=== PATIENT | female | born 1960 | race Caucasian/White ===

== ENCOUNTER 2021-02-02 10:57 | Outpatient (REF) | payer BC, SELFPAY ==
[2021-02-02 14:22] LABS: MANUAL DIFF FLAG NO
[2021-02-02 14:27] LABS: Basophils Percent Auto 0.3 % (0-2); Eosinophils Percent Auto 0.5 % (0-4); Hematocrit 41.5 % (37-47); Hemoglobin 13.6 g/dl (12.0-16.0); Imm Gran Abs Auto 0.01 X10*3/uL (0.00-0.03); Imm Gran Pct Auto 0.2 % (0.0-0.4); Lymphocytes Absolute Auto 1.6 X10*3/uL (1.2-4.9); Lymphocytes Percent Auto 27.3 % (20-40); Mean Corpuscular HGB Conc 32.8 g/dl (31.0-35.0); Mean Corpuscular Volume 88.5 fL (80-98); Mean Platelet Volume 10.8 fL (9.4-12.3); Monocytes Absolute Auto 0.3 X10*3/uL (0.1-1.2); Monocytes Percent Auto 4.6 % (2-11); Neutrophils Absolute Auto 3.9 X10*3/uL (2.0-8.3); Neutrophils Percent Auto 67.1 % (45-73); Platelet Count 327 X10*3/uL (160-400); Red Blood Count 4.69 X10*6/uL (4.20-5.50); White Blood Count 5.8 X10*3/uL (4.8-10.8)
[2021-02-02 14:59] LABS: Anion Gap 14 (12-20); Blood Urea Nitrogen 12 mg/dL (9-16); Carbon Dioxide 25 mmol/L (22-29); Chloride 108 mmol/L (96-108); Estimated Glomerular Filt Rate > 60; Glucose Fasting 83 mg/dL (60-99); Sodium 142 mmol/L (135-145)
[2021-02-02 15:00] LABS: Alanine Aminotransferase 34 U/L (0-31); Albumin Level 4.3 g/dL (3.5-5.0); Alkaline Phosphatase 84 U/L (39-117); Aspartate Amino Transferase 33 U/L (5-31); Bilirubin Total 0.6 mg/dL (0.0-1.0); Calcium 9.8 mg/dL (8.4-10.2); Cholesterol 217 mg/dL; HDL Cholesterol 75 mg/dL; LDL Cholesterol Calculated 131 mg/dl; Total Protein 6.7 g/dL (6.5-8.0); Triglycerides 56 mg/dL
[2021-02-02 15:07] LABS: Thyroid Stimulating Hormone 1.37 uIU/mL (0.32-4.0); Vitamin D 25-OH Total 31.5 ng/mL (>30)
== END 2021-02-02 10:58 | disposition home or self-care (01) ==
LOC: HO.HMGCLDS 10:57
PROVIDERS: PCP Internal Medicine; Visit Provider Internal Medicine
DX: Z00.00 Encounter for general adult medical examination without abnormal findings (principal); E55.9 Vitamin D deficiency, unspecified
CPT/HCPCS: 36415; 80053; 80061; 82306; 84443; 85025

== ENCOUNTER 2022-09-19 08:43 | Outpatient (REF) | payer OTHER, SELFPAY ==
[2022-09-19 11:15] LABS: Appearance Urine Clear; Color Urine Yellow; Glucose Urine UA Negative (Negative); Leukocyte Esterase Urine Trace (Negative); Nitrite Urine Negative (Negative); UMIC TRIGGER UA YES; Urine Blood Negative (Negative); Urine Ketones Negative (Negative); Urine Protein Negative (Neg-Trace)
[2022-09-19 11:22] LABS: Bacteria Urine None Seen (None Seen); Hyaline Casts Urine 0-2 /LPF (0-2); RBC Urine 0-2 /HPF (0-2); Squamous Epithelial Cell Urine 0-2 /HPF (0-2); WBC Urine 0-5 /HPF (0-5)
[2022-09-19 11:24] LABS: MANUAL DIFF FLAG NO
[2022-09-19 11:43] LABS: Basophils Percent Auto 0.8 % (0-2); Eosinophils Absolute Auto 0.2 X10*3/uL (0.0-0.4); Eosinophils Percent Auto 3.5 % (0-4); Hematocrit 42.5 % (37.0-47.0); Hemoglobin 13.9 g/dl (12.0-16.0); Imm Gran Abs Auto 0.01 X10*3/uL (0.00-0.03); Imm Gran Pct Auto 0.2 % (0.0-0.4); Lymphocytes Absolute Auto 2.6 X10*3/uL (1.2-4.9); Lymphocytes Percent Auto 50.6 % (20-40); Mean Corpuscular HGB Conc 32.7 g/dl (31.0-35.0); Mean Corpuscular Volume 88.5 fL (80.0-98.0); Mean Platelet Volume 10.8 fL (9.4-12.3); Monocytes Absolute Auto 0.5 X10*3/uL (0.1-1.2); Monocytes Percent Auto 8.8 % (2-11); Neutrophils Absolute Auto 1.9 x10*3/uL (2.0-8.3); Neutrophils Percent Auto 36.1 % (45-73); Platelet Count 283 X10*3/uL (160-400); Red Cell Distribution Width 13.8 % (11.0-16.0); White Blood Count 5.2 X10*3/uL (4.8-10.8)
[2022-09-19 12:00] LABS: Alanine Aminotransferase 41 U/L (0-31); Alkaline Phosphatase 122 U/L (39-117); Anion Gap 11 (12-20); Aspartate Amino Transferase 41 U/L (5-31); Bilirubin Total 0.5 mg/dL (0.0-1.0); Blood Urea Nitrogen 18 mg/dL (9-16); Calcium 9.3 mg/dL (8.4-10.2); Carbon Dioxide 25 mmol/L (22-29); Chloride 110 mmol/L (96-108); Cholesterol 218 mg/dL; Estimated Glomerular Filt Rate > 60; Glucose Fasting 88 mg/dL (60-99); HDL Cholesterol 68 mg/dL; LDL Cholesterol Calculated 138 mg/dl; Potassium 5.1 mmol/L (3.3-5.1); Sodium 141 mmol/L (135-145); Total Protein 6.4 g/dL (6.5-8.0); Triglycerides 61 mg/dL
[2022-09-19 12:36] LABS: Thyroid Stimulating Hormone 1.91 uIU/mL (0.32-4.0); Vitamin D 25-OH Total 26.2 ng/mL (>30)
== END 2022-09-19 08:44 | disposition home or self-care (01) ==
LOC: HO.HMGCLDS 08:43
PROVIDERS: PCP Internal Medicine; Visit Provider Internal Medicine
DX: Z00.00 Encounter for general adult medical examination without abnormal findings (principal); E55.9 Vitamin D deficiency, unspecified; R09.89 Other specified symptoms and signs involving the circulatory and respiratory systems; E78.00 Pure hypercholesterolemia, unspecified
CPT/HCPCS: 36415; 80053; 80061; 81001; 82306; 84443; 85025

== ENCOUNTER 2022-10-14 08:24 | Day surgery (SDC) | payer OTHER, SELFPAY ==
--- NOTE | 2022-10-11 10:41 | P.CONAN_ITS ---
Documented by User: Susanna Katz NP 10/11/22 10:44 HPI - Anesthesia Eval Consult details Narrative: 62yo F for Colonoscopy [facility] Past Medical History Medical History No pertinent past medical history Surgical History Surgical History H/O breast biopsy Hx of colonoscopy Social History Social History Patient Tobacco Use Status: Former Tobacco user Advance Directives: No Advance Directives Information Provided: Yes Meds Allergies Allergy/AdvReac Type Severity Reaction Status Date / Time codeine [CODEINE] Allergy Unknown can't sleep Verified 10/14/22 13:18 erythromycin base Allergy Unknown Rash Verified 10/14/22 13:18 [ERYTHROMYCIN BASE] penicillin V Allergy Unknown Unknown Verified 10/14/22 13:18 Penicillins [PENICILLINS] Allergy Unknown Rash Verified 10/14/22 13:18 Exam Exam Date and Time: October 11, 2022 1041 Assessment and Plan Assessment Anesthesia Assessment: Chart Reviewed Documented by User: Va Sutherland MD 10/14/22 13:56 HPI - Anesthesia Eval Consult details Narrative: 62yo F for Colonoscopy fell and hit head with loss of conciousness and bruised left eye sent to ER headCT cleared [facility] Past Medical History Medical History No pertinent past medical history Family History Family history of problems with anesthesia: No Surgical History Surgical History H/O breast biopsy Hx of colonoscopy History of Problems with Anesthesia: No Social History Social History Patient Tobacco Use Status: Former Tobacco user Advance Directives: No Advance Directives Information Provided: Yes Meds Allergies Allergy/AdvReac Type Severity Reaction Status Date / Time codeine [CODEINE] Allergy Unknown can't sleep Verified 10/14/22 13:18 erythromycin base Allergy Unknown Rash Verified 10/14/22 13:18 [ERYTHROMYCIN BASE] penicillin V Allergy Unknown Unknown Verified 10/14/22 13:18 Penicillins [PENICILLINS] Allergy Unknown Rash Verified 10/14/22 13:18 Exam Airway Mallampati Class: I TM Dist: >3cm Neck ROM: Full Loose/Missing/Broken Teeth: No Heart: rr Lungs: cta Other: black and blue left eye no other apparent injuries or co pain Assessment and Plan Final Anesthetic Review Family History of Problems with Anesthesia: No History of Problems with Anesthesia: No NPO: Yes ASA Class: II Final Preanesthetic Review: No Changes in Pt Med Stat, Meds/Allgs Chart Reviewed, Consent Obtained/Reviewed and Anes Risks/Benef Reviewed Patient Risk: Low Procedure Risk: Low Anesthetic Plan Anesthetic Plan: MAC: Disposition: Standard PACU
--- OUTSIDE RECORDS SUMMARY | 2022-10-14 08:26 | XMS_ITS ---
Author Name Demterio Lewis Address [address] [place] [address] Organization [facility] Address [address] [place] [address] Care Team Providers Care Patient Financial Services Coordinator Name Role Phone Demetrio Lewis Unavailable [phone] PROBLEMS Type Condition ICD9-CM Code [id number] Code Onset Dates Condition Status SNOMED Code Problem Preprocedural examination Z01.818 Active 504179342326465 Problem Colon cancer screening Z12.11 Active [id number] ALLERGIES Substance Reaction Event Type Date Status Codeine Phosphate Unknown Drug Allergy Jul, Act florentino Erythromycin Unknown Drug Allergy Jul, Active Penicillin Unknown Drug Allergy Jul, Active ENCOUNTERS Encounter Location Date Diagnosis [facility] [address] [place] [id number] September, [facility] [address] [place] [phone] Jul, Colon cancer screening Z12.11 and Preprocedural examination Z01.818 [facility] [address] [place] [id number] Jun, [facility] [address] [place] [phone] Apr, [facility] [address] [place] [phone] Apr, Colon cancer screening V76.51 IMMUNIZATIONS No Known Immunizations SOCIAL HISTORY Never Assessed REASON FOR REFERRAL FUNCTIONAL STATUS PLAN OF CARE Activity Details VITAL SIGNS Weight 115 lbs 2022-08-20 Weight 108.5 lbs 2012-05-12 Height 63.35 in 2022-08-20 Height 63.35 in 2012-05-12 BMI 20.14 kg/m2 2022-08-20 BMI 19.01 kg/m2 2012-05-12 Heart Rate 68 /min 2012-05-12 Temperature 97.1 degrees Fahrenheit Blood pressure systolic 000 mm Hg Blood pressure diastolic 00 mm Hg 2022-07 MEDICATIONS Unknown Medications PROCEDURES Procedure Date Ordered Result Body Site BP SCR NOT PRFRM REC REASON NOS August 20, 2022 TOBACCO NON-USER August 20, 2022 DOC MEDS VERIFIED W/PT OR RE August 20, 2022 COLORECTAL CA SCREEN DOC REV August 20, 2022 RESULTS No Results REASON FOR VISIT screening colon, Patient presents today for a SCREENNG COLON, Patient presents today for a SCREENNGCOLON, screening colon , Suprep, screening colonoscopy, screening colonoscopy Insurance Providers Health Insurance Type Health Plan Insurance Address Health Plan Insurance Phone Health Plan Insurance Name Health Plan Coverage Dates Member ID Patient Relationship to Subscriber Patient Address Patient Phone Patient Name Patient Date of Subscriber ID Subscriber Name Subscriber Date of Group No HMO BLUE BCBS PROFESSION [place] CLAIMS [address] [facility] [id number] HMO BLUE self TY WAGNER [id number] 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
[2022-10-14 09:15] VITALS: BMI 20.1
[2022-10-14 09:30] VITALS: BP 127/55; PULSE 86; RESP 16; TEMP 36.4; O2SAT 98
--- NOTE | 2022-10-14 10:02 | PC.NURSE ---
upon arrival patient stated after completing bowel prep I fell and hit my head on the toilet . patient confirms she loss consciousness and does not remember when she fell or how long she was down for. Dr. Sutherland and Dr. Lewis aware. patient transfered to ER, if CT scan clear patient to return to [facility] for colonoscopy as scheduled today. report given to CASE Lira and Dr. Lewis doc to doc given to ER provider. patient [facility] [place] [facility] [place] [facility].
--- NOTE | 2022-10-14 13:16 | PC.NURSE ---
pt cleared by [facility] will proceed with coloscopy per anesthesia and dr reis
[2022-10-14 14:22] VITALS: BP 107/50; PULSE 91; RESP 16; TEMP 36.1; O2SAT 99
--- NOTE | 2022-10-14 14:22 | PM.OP ---
Brief Operative Note Date of Service: 10/14/22 Pre-op diagnosis: Screening Post-op diagnosis: other (Cecal polyp) Procedure: Colonoscopy to the cecum with hot snare polypectomy x 1 Surgeon: Demetrio Lewis Anesthesia: MAC Was an Store Clerk Cashier used for this Procedure?: No Estimated blood loss (mL): 0 Pathology: other (A. Cecal polyp) Condition: stable Disposition: PACU
[2022-10-14 14:37] VITALS: BP 110/64; PULSE 78; RESP 16; TEMP 36.1; O2SAT 99
--- NOTE | 2022-10-15 00:14 | OP_ITS ---
DATE OF SERVICE: 10/14/2022 SURGEON: Demetrio Lewis MD INDICATIONS: The patient presents for evaluation of colorectal cancer screening. Full consent has been obtained from her for this, including risks of bleeding and perforation. PREOPERATIVE DIAGNOSIS: Colorectal cancer screening. POSTOPERATIVE DIAGNOSIS: PROCEDURE PERFORMED: Colonoscopy to cecum with hot snare polypectomy. ESTIMATED BLOOD LOSS: COMPLICATIONS: ANESTHESIA: Monitored anesthesia care. ASSISTANTS: SPECIMENS: POSTOPERATIVE DIAGNOSES: Colorectal cancer screening, colon polyp, sigmoid diverticulosis, internal hemorrhoids. DESCRIPTION OF PROCEDURE: The patient was placed in the left lateral decubitus position. The digital rectal exam revealed no abnormalities. The Olympus video pediatric colonoscope was entered into the rectum and advanced easily to the cecum. Once in the cecum, I did identify cecal pouch with appendiceal orifice, a normal-appearing ileocecal valve. There was transillumination of light deep in the right lower quadrant. The entire cecum was well visualized and appeared normal other than an approximately 8 mm polyp, which was removed by hot snare polypectomy and recovered by suction. The polypectomy site appeared clean, without any sign of residual polyp nor bleeding. The scope was then slowly withdrawn assessing all mucosal surfaces carefully. Preparation was excellent. I did not visualize any sign of other polyps, colitis, nor angiodysplasia. There was a mild amount of sigmoid diverticulosis. In the rectum, scope was retroflexed visualizing internal hemorrhoids, but no other pathology. The rectal mucosa appeared normal. The scope was straightened and withdrawn from the patient. She tolerated the procedure well and was returned to recovery area in stable condition. IMPRESSION: 1. Cecal polyp, status post hot snare polypectomy. 2. Diverticulosis. 3. Internal hemorrhoids. PLAN: The results of the pathology will be checked. If this is a tubular adenoma, I would recommend a followup coloscopy in 5 years. If it is only a hyperplastic and/or inflammatory polyp, I would recommend a followup coloscopy in 10 years instead. She was advised not to use any aspirin and NSAIDs for 1 week. Of note, she did have a fall at home last night, which caused a black eye. Prior to the procedure, she was sent to the ER for evaluation and underwent a negative CT scan of the head and cervical spine. She was sent back for the procedure and has been comfortable. She can use some Tylenol and/or ice for any discomfort in that area, but was advised to follow up with her primary care physician regarding any ongoing issues with it. This has all been discussed with her in detail. MD BALJINDER Lepe/TRA / [id number] MTDD
== END 2022-10-14 15:26 | disposition home or self-care (01) ==
PROVIDERS: PCP Internal Medicine; Visit Provider Internal Medicine
PROC: 0DJD8ZZ Inspection of Lower Intestinal Tract, Via Natural or Artificial Opening Endoscopic (ICD-10-PCS; CPT 45378; principal; 2022-10-14 10:40)
DX: Z12.11 Encounter for screening for malignant neoplasm of colon (principal); D12.0 Benign neoplasm of cecum; K57.30 Diverticulosis of large intestine without perforation or abscess without bleeding; K64.8 Other hemorrhoids; Z88.0 Allergy status to penicillin; Z88.1 Allergy status to other antibiotic agents; Z88.8 Allergy status to other drugs, medicaments and biological substances
CPT/HCPCS: 45385; 88305

== ENCOUNTER 2022-10-14 09:57 | Emergency (ER) | payer OTHER, SELFPAY ==
--- NOTE | ~2022-10-14 | CT_ITS ---
Examination: CT brain and CT cervical spine without contrast. CLINICAL INDICATION: Fall, head strike. Pain. COMPARISON: None. TECHNIQUE: 5 mm thin axial and reformatted 2 mm thin sagittal and coronal images of brain were obtained. DLP 757. Subsequently axial 3 mm thin and reformatted 2 mm thin sagittal coronal images of cervical spine were obtained. DLP 757. This CT examination was performed using dose optimization technique as appropriate, variously including the following: Automated exposure control Adjustment of MA and/or KV according to patient size(this includes techniques or standardized protocols for targeted exams where dose is matched to indication/reason for exam; extremities or head. Use of iterative reconstruction techniques. FINDINGS: BRAIN: There is no acute intra-axial, extra-axial bleed, masses or midline shift. No acute infarction in evolution. There is no edema. The sorensen to white matter differentiation is maintained normal. The lateral ventricles are symmetrical in size and configuration without and enlargement. No abnormality seen in the posterior fossa. Bone windows reveal no calvarial abnormality. Bilateral paranasal sinuses and mastoid air cells are well-aerated. No scalp soft tissue swelling seen. Cervical spine: There is mild straightening of cervical lordosis. The vertebral heights and alignment is normal. There is grade 1 anterolisthesis C3 over C4. Rest the vertebral alignment is normal. Loss of C4-C5, C5-C6 and C6-C7 disc heights with moderate ventral spondylosis and minimal posterior cervical spondylosis seen. The craniovertebral junction and the C1-C2 alignment is normal. No visible acute fracture, dislocation or subluxation seen. The prevertebral and paravertebral soft tissues are normal. The airway is widely patent. Thyroid lobes are symmetrical. The lung apices are clear. CT/CT cervical spine wo IV con IMPRESSION: 1. No acute intracranial process seen. 2. There is no acute fracture, dislocation or subluxation in cervical spine. There is grade 1 anterolisthesis C3 over C4. There are degenerative disc changes C4-C5, C5-C6 and C6-C7 disc levels with moderate ventral spondylosis.
--- NOTE | 2022-10-14 10:01 | ED_ITS ---
HPI - General Adult General Chief complaint: Fall Stated complaint: Syncopal Episode Time Seen by Provider: 10/14/22 10:00 Source: patient Mode of arrival: other (stretcher) Limitations: no limitations History of Present Illness HPI narrative: Patient is a 62 year old assigned female at with no reported medical history presenting to the emergency department today after a vasovagal episode. Patient states that she was here, prepping for a colonoscopy, when she felt nauseous, bent over to vomit, and woke up on the floor with a bruise to her left eye. Patient denies any anti-coagulant use. Patient denies any dizziness, lightheadedness, abdominal pain, nausea, vomiting, fever, chills, blurry vision, double vision, loss of vision, chest pain, difficulty breathing, shortness of breath, back pain, night sweats, pain with urination, increased urinary frequency, increased urinary urgency, blood in her urine or stool, syncope or a near syncopal episode, bowel incontinence, bladder incontinence, bowel retent ion, bladder retention, or any other complaints at this time. Onset (ago): minute(s) Location: head and face Severity: mild Relieving factors: none Exacerbating factors: none Associated symptoms: denies other symptoms Treatments prior to arrival: none Related Data Allergies Allergy/AdvReac Type Severity Reaction Status Date / Time codeine [CODEINE] Allergy Unknown can't sleep Verified 10/14/22 13:18 erythromycin base Allergy Unknown Rash Verified 10/14/22 13:18 [ERYTHROMYCIN BASE] penicillin V Allergy Unknown Unknown Verified 10/14/22 13:18 Penicillins [PENICILLINS] Allergy Unknown Rash Verified 10/14/22 13:18 Review of Systems Constitutional: Constitutional: Reports no additional constitutional complaints, Denies chills, Denies fever(s) and Denies night sweats Eyes: Eyes: Reports no additional eye complaints, Denies blurry vision, Denies change in vision, Denies diplopia, Denies eye discharge, Denies loss of vision and Denies eye pain ENT: Denies dizziness Cardiovascular: Cardiovascular: Reports no additional cardiovascular complaints, Denies chest pain, Denies lightheadedness, Denies Loss of Consciou sness and Denies dyspnea Respiratory: Respiratory: Reports no additional respiratory complaints and Denies dyspnea Gastrointestinal: Gastrointestinal: Reports no additional gastrointestinal co mplaints, Denies abdominal pain, Denies melena, Denies hematochezia, Denies change in bowel habits and Denies change in stool character Genitourinary: Genitourinary: Denies hematuria, Denies urinary frequency, Denies dysuria, Denies urinary incontinence, Denies urinary hesitancy and Denies urinary urgency Musculoskeletal: Musculoskeletal: Reports no additional musculoskeletal complaints, Denies numbness and Denies tingling Integumentary/Breasts: Comments: bruising around the left eye Neurologic: Denies dizziness, Denies loss of vision, Denies numbness and Denies tingling Psychiatric: Psychiatric: Reports no additional psychiatric complaints Endocrine: Endocrine: Reports no additional endocrine complaints Hematologic/Lymphatic: Hematologic/Lymphatic: Reports no additional hematologic/lymphatic complaints Allergic/Immunologic: Allergic/Immunologic: Reports no additional allergic/immunologic complaints PMFSH Past Medical History Attestation statement: The following information was validated with the patient. Source: old records reviewed and nursing notes reviewed Medical History No pertinent past medical history Surgical History H/O breast biopsy Hx of colonoscopy Social History Social History Patient Tobacco Use Status: Former Tobacco user Advance Directives: No Advance Directives Information Provided: Yes Physical Exam ED Vital Signs: Vital Signs - 24 hr 10/14/22 10:02 Temperature 99.7 F Pulse Rate 78 Respiratory Rate 16 Blood Pressure 131/69 Pulse Oximetry 98 Oxygen Delivery Method Room Air BMI result Body Mass Index 20.4 Const General: cooperative, no acute distress, alert and awake Nutritional Appearance: well nourished Orientation/consciousness: patient oriented x3 Limitations: no limitations [facility] Head: Yes atraumatic Ears: hearing grossly normal bilaterally and external ears normal General nose exam: Normal external nose present, no nasal discharge noted and no epistaxis Face and sinus: Yes normal facial exam, No abrasion and No laceration Mouth: Normal oral and palatal mucosa present, no drooling and no muffled voice Eyes Other: minimal bruising and small abrasion present to the left eyebrow Conjunctivae: conjunctivae normal Sclerae: sclerae normal Corneas: corneas normal Pupils: Equal, round and reactive pupils present EOM: EOMs intact bilaterally Neck Neck: Yes normal visual inspection, Yes full ROM and Yes no lymphadenopathy Chest Chest palpation & inspection: normal inspection of the chest Resp Effort & Inspection: normal respiratory effort and able to speak in complete sentences GI Inspection: Yes normal to inspection Neuro General: patient oriented x3 and moves all extremities Cranial nerves: Yes Equal, round and reactive pupils present Cognition (Neuro): normal cognition Motor exam (neuro): 5/5 motor strength present throughout Sensory Exam: Normal double simultaneous stimulation for sensation Coordination: [id number] test normal Extrem General: Yes normal to inspection, Yes full ROM and Yes capillary refill normal Psych Appearance: grossly normal Mental Status: mental status grossly normal Affect: normal affect Attitude: cooperative Thought process: Normal thought process present Thought content: Normal thought content present Insight: Good insight present (Psych) Medications Administered Discontinued Medications Generic Name Dose Route Start Last Admin Trade Name Freq PRN Reason Stop Dose Admin Diphtheria/Tetanus/Acell Pertussis 0.5 ml 10/14/22 12:47 10/14/22 13:15 Diphth,Pertus(Acell),Tet Adult 0.5 Ml Syringe IM 10/14/22 12:48 0.5 ml .ONCE ONE Administration Medical Decision Making Medical Decision Making [facility] Narrative: Patient is a 62 year old assigned female at with no reported medical history presenting to the emergency department today with a left eye bruise / abrasion after a vasovagal episode. Patient's physical exam showed a small abrasion and bruising to the left eyebrow. Patient's blood work was unremarkable. Patient's head and face CT showed no acute process. I explained my physical exam findings as well as all test results to the patient. I answered all questions asked by the patient. Patient was brought up to date on tetatnus. I stressed the importance of the patient taking her medication as prescribed. I stressed the importance of the patient following up with her primary care provider. I stressed the importance of the patient returning to the emergency department immediately if her symptoms were to worsen or if she were to develop any dizziness, shortness of breath, difficulty breathing, chest pain, blurry vision, loss of vision, nausea, vomiting, abdominal pain, fever, chills, back pain, or any other complaints. Patient verbalized agreement and understanding with this treatment plan and discharge back to short stay to complete her colonoscopy. Differential Diagnosis Differential Diagnoses: The differential diagnosis associated with the presentation includes vasovagal episode Lab Data [facility] Lab Attestation statement: I reviewed the patient's lab results. 10/14/22 10:15 10/14/22 10:15 Labs: Lab Results 10/14/22 10/14/22 10/14/22 Range/Units 10:15 10:15 13:03 WBC 8.3 (4.8-10.8) X10*3/uL RBC 4.61 (4.20-5.50) X10*6/uL Hgb 13.3 (12.0-16.0) g/dl Hct 39.7 (37.0-47.0) % MCV 86.1 (80.0-98.0) fL MCH 28.9 (27.0-33.0) pg MCHC 33.5 (31.0-35.0) g/dl RDW 13.2 (11.0-16.0) % Plt Count 236 (160-400) X10*3/uL MPV 9.8 (9.4-12.3) fL Immature Gran % (Auto) 0.4 (0.0-0.4) % Neut % (Auto) 82.0 H (45-73) % Lymph % (Auto) 11.2 L (20-40) % [place] % (Auto) 5.2 (2-11) % Eos % (Auto) 0.8 (0-4) % Baso % (Auto) 0.4 (0-2) % Lymph # (Auto) 0.9 L (1.2-4.9) X10*3/uL [place] # (Auto) 0.4 (0.1-1.2) X10*3/uL Eos # (Auto) 0.1 (0.0-0.4) X10*3/uL Baso # (Auto) 0.0 (0.0-0.2) X10*3/uL Abs Immat Gran (auto) 0.03 (0.00-0.03) X10*3/uL Absolute Neuts (auto) 6.8 (2.0-8.3) x10*3/uL Absolute Nucleated RBC 0.000 (0.0-0.012) X10*3/uL Nucleated RBC % (auto) 0.0 (0.0-0.2) /100WBC PT 12.3 (10.0-13.1) SEC INR 1.1 (0.9-1.1) APTT 33.6 (26.0-36.4) SEC Sodium 145 (135-145) mmol/L Potassium 4.1 (3.3-5.1) mmol/L Chloride 107 (96-108) mmol/L Carbon Dioxide 25 (22-29) mmol/L Anion Gap 17 (12-20) BUN 10 (9-16) mg/dL Creatinine 0.78 (0.5-1.4) mg/dL Estim Creat Clear Calc 63.2 Estimated GFR > 60 Random Glucose 76 (60-115) mg/dL Calcium 9.6 (8.4-10.2) mg/dL Total Bilirubin 0.9 (0.0-1.0) mg/dL AST 26 (5-31) U/L ALT 24 (0-31) U/L Alkaline Phosphatase 88 (39-117) U/L Total Protein 6.6 (6.5-8.0) g/dL Albumin 4.1 (3.5-5.0) g/dL Independent Interpretation I performed an independent interpretation of an: CT Scan Interpretation: My interpretation is in agreement with the radiologist's impression of these imaging studies. Examination: CT brain and CT cervical spine without contrast. CLINICAL INDICATION: Fall, head strike. Pain. COMPARISON: None. TECHNIQUE: 5 mm thin axial and reformatted 2 mm thin sagittal and coronal images of brain were obtained. DLP 757. Subsequently axial 3 mm thin and reformatted 2 mm thin sagittal coronal images of cervical spine were obtained. DLP 757. This CT examination was performed using dose optimization technique as appropriate, variously including the following: Automated exposure control Adjustment of MA and/or KV according to patient size(this includes techniques or standardized protocols for targeted exams where dose is matched to indication/reason for exam;? extremities or head. Use of iterative reconstruction techniques. FINDINGS: BRAIN: There is no acute intra-axial, extra-axial bleed, masses or midline shift. No acute infarction in evolution. There is no edema. The sorensen to white matter differentiation is maintained normal. The lateral ventricles are symmetrical in size and configuration without and enlargement. No abnormality seen in the posterior fossa. Bone windows reveal no calvarial abnormality. Bilateral paranasal sinuses and mastoid air cells are well-aerated. No scalp soft tissue swelling seen. Cervical spine: There is mild straightening of cervical lordosis. The vertebral heights and alignment is normal. There is grade 1 anterolisthesis C3 over C4. Rest the vertebral alignment is normal. Loss of C4-C5, C5-C6 and C6-C7 disc heights with moderate ventral spondylosis and minimal posterior cervical spondylosis seen. The craniovertebral junction and the C1-C2 alignment is normal. No visible acute fracture, dislocation or subluxation seen. The prevertebral and paravertebral soft tissues are normal. The airway is widely patent. Thyroid lobes are symmetrical. The lung apices are clear. CT/CT head/brain wo IV con IMPRESSION: 1.? No acute intracranial process seen. 2.? There is no acute fracture, dislocation or subluxation in cervical spine. There is grade 1 anterolisthesis C3 over C4. There are degenerative disc changes C4-C5, C5-C6 and C6-C7 disc levels with moderate ventral spondylosis. Dictated By: Denny Mcarthur MD Signed By: Electronically signed by Denny Mcarthur MD 10/14/22 2365 Discharge Plan Discharge Clinical Impression: Vasovagal episode Patient Disposition: Home, Self-Care Instructions: Syncope (DC) Additional Instructions: Follow up with your primary care provider. Return to the emergency department immediately if your symptoms worsen or if you develop any dizziness, shortness of breath, difficulty breathing, chest pain, blurry vision, loss of vision, nausea, vomiting, abdominal pain, fever, chills, back pain, or any other complaints. Referrals: Demetrio Sharif DO [Primary Care Provider] - Discharge Date/Time: 10/14/22 13:19 Print Language: Vietnamese
[2022-10-14 10:02] VITALS: BP 131/69; PULSE 78; RESP 16; TEMP 37.6; O2SAT 98; BMI 20.4
[2022-10-14 10:19] LABS: MANUAL DIFF FLAG NO
[2022-10-14 10:21] LABS: Basophils Percent Auto 0.4 % (0-2); Eosinophils Absolute Auto 0.1 X10*3/uL (0.0-0.4); Eosinophils Percent Auto 0.8 % (0-4); Hematocrit 39.7 % (37.0-47.0); Hemoglobin 13.3 g/dl (12.0-16.0); Imm Gran Abs Auto 0.03 X10*3/uL (0.00-0.03); Imm Gran Pct Auto 0.4 % (0.0-0.4); Lymphocytes Absolute Auto 0.9 X10*3/uL (1.2-4.9); Lymphocytes Percent Auto 11.2 % (20-40); Mean Corpuscular HGB Conc 33.5 g/dl (31.0-35.0); Mean Corpuscular Hemoglobin 28.9 pg (27.0-33.0); Mean Corpuscular Volume 86.1 fL (80.0-98.0); Mean Platelet Volume 9.8 fL (9.4-12.3); Monocytes Absolute Auto 0.4 X10*3/uL (0.1-1.2); Monocytes Percent Auto 5.2 % (2-11); Neutrophils Absolute Auto 6.8 x10*3/uL (2.0-8.3); Platelet Count 236 X10*3/uL (160-400); Red Blood Count 4.61 X10*6/uL (4.20-5.50); Red Cell Distribution Width 13.2 % (11.0-16.0); White Blood Count 8.3 X10*3/uL (4.8-10.8)
[2022-10-14 10:27] LABS: INTERNATIONAL NORM RATIO 1.1 (0.9-1.1); Prothrombin Time 12.3 SEC (10.0-13.1)
[2022-10-14 10:29] LABS: Partial Thromboplastin Time 33.6 SEC (26.0-36.4)
--- OUTSIDE RECORDS SUMMARY | 2022-10-14 10:40 | XMS_ITS ---
Author Name Demetrio Lewis Address [address] [place] [address] Organization [facility] Address [address] [place] [address] Care Team Providers Care Director Of Strategic Programs Name Role Phone Demetrio Lewis Unavailable [phone] PROBLEMS Type Condition ICD9-CM Code [id number] Code Onset Dates Condition Status SNOMED Code Problem Preprocedural examination Z01.818 Active 847112664092394 Problem Colon cancer screening Z12.11 Active [id number] ALLERGIES Substance Reaction Event Type Date Status Codeine Phosphate Unknown Drug Allergy Jul, Act florentino Erythromycin Unknown Drug Allergy Jul, Active Penicillin Unknown Drug Allergy Jul, Active ENCOUNTERS Encounter Location Date Diagnosis [facility] [address] [place] [id number] September, [facility] [address] [place] [phone] Jul, Colon cancer screening Z12.11 and Preprocedural examination Z01.818 [facility] [address] [place] [id number] Jun, [facility] [address] [place] [phone] Apr, [facility] [address] [place] [phone] Apr, Colon cancer screening V76.51 IMMUNIZATIONS No [...] Subscriber Name Subscriber Date of Group No [employer]ARLA TOGETHER [address] [facility] [id number] KARLA TOGETHER self TY WAGNER [id number] O BLUE BCBS PROFESSION AL CLAIMS [address] [facility] [address] O BLUE self [employer] WAGNER [id number]
[2022-10-14] MEDS: Diphth,Pertus(ACell),Tet Adult 0.5 ML SYRINGE IM (13:15)
[2022-10-14 13:29] LABS: Alanine Aminotransferase 24 U/L (0-31); Albumin Level 4.1 g/dL (3.5-5.0); Alkaline Phosphatase 88 U/L (39-117); Anion Gap 17 (12-20); Aspartate Amino Transferase 26 U/L (5-31); Bilirubin Total 0.9 mg/dL (0.0-1.0); Blood Urea Nitrogen 10 mg/dL (9-16); Calcium 9.6 mg/dL (8.4-10.2); Carbon Dioxide 25 mmol/L (22-29); Chloride 107 mmol/L (96-108); Creatinine Clr Calc Pharmacy 63.2; Estimated Glomerular Filt Rate > 60; Glucose Random 76 mg/dL (60-115); Potassium 4.1 mmol/L (3.3-5.1); Sodium 145 mmol/L (135-145); Total Protein 6.6 g/dL (6.5-8.0)
== END 2022-10-14 13:19 | disposition home or self-care (01) ==
PROVIDERS: Physician Assistant Medical; Emergency Provider Emergency Medicine; PCP Internal Medicine
DX: R55 Syncope and collapse (principal)
CPT/HCPCS: 36415; 70450; 72125; 80053; 85025; 85610; 85730; 90471; 90715; 99281; 99284

== ENCOUNTER 2022-10-23 08:24 | Outpatient (REF) | payer OTHER, SELFPAY ==
--- NOTE | ~2022-10-23 | MM_ITS ---
EXAMINATION: MM SCREENING DIGITAL BREAST TOMOSYNTHESIS, BILATERAL CLINICAL INFORMATION: Screening. Asymptomatic. The lifetime risk of breast cancer based on the Tyrer-Cuzick Model is 7%. COMPARISON: Mammography: 03/23/2018, 12/05/2015, 11/22/2015, outside exam 08/23/2014 ([facility]). TECHNIQUE: Digital breast tomosynthesis is performed in both the craniocaudal and mediolateral oblique views along with computer-aided detection (CAD). Synthesized 2D images are generated from the tomosynthesis. FINDINGS: The breasts are heterogeneously dense, which may obscure small masses (ACR BI-RADS breast composition Category c). There are no significant masses, abnormal calcifications, or other abnormalities. Parenchymal pattern is similar to prior studies. There is no developing density or architectural abnormality. The axilla and skin contours are unremarkable. No significant changes. MM/MM tomosynthesis screening BI IMPRESSION: No mammographic evidence of malignancy. ASSESSMENT: BI-RADS 1: Negative RECOMMENDATION: Routine annual mammography screening. This patient's information was entered into a reminder system with a target due date for their next mammogram.
== END 2022-10-23 08:25 | disposition home or self-care (01) ==
LOC: HO.MAMMO 08:24
PROVIDERS: PCP Internal Medicine; Visit Provider Internal Medicine
DX: Z12.31 Encounter for screening mammogram for malignant neoplasm of breast (principal)
CPT/HCPCS: 77063; 77067

== ENCOUNTER 2023-06-02 13:01 | Outpatient (AMB) | payer OTHER, SELFPAY ==
--- NOTE | 2023-06-02 13:16 | MHC.OFFVIS ---
Intake Vital Signs 06/02/23 13:19 Height 5 ft 3 in Weight 11 lb BMI 1.9 BP 112/60 Pulse 99 Intake Visit Reasons: re establish care Intake Note: Patient present for yearly exam: Last pap smear around 2018, no surgeries. Online Program Coordinator Required: No Accompanied by: Self / Same As Patient Allergies codeine [CODEINE] Allergy (Unknown, Verified 06/02/23 13:19) can't sleep erythromycin base [ERYTHROMYCIN BASE] Allergy (Unknown, Verified 06/02/23 13:19) Rash penicillin V Allergy (Unknown, Verified 06/02/23 13:19) Unknown Penicillins [PENICILLINS] Allergy (Unknown, Verified 06/02/23 13:19) Rash HPI HPI Comments History of Present Illness Details Presenting for annual exam. No complaints. Last Pap/HPV was negative in 2016 Last Mammogram was BI-RADS 1 in 10/15 Last Colonoscopy was in 10/15 No previous DEXA scan PFSH Medical History No pertinent past medical history Surgical History H/O breast biopsy Hx of colonoscopy Social History Patient Tobacco Use Status: Former Tobacco user Review of Systems Const All systems reviewed & are unremarkable except as noted in HPI and below Card Reports as per HPI Resp Reports as per HPI GI Reports as per HPI and Reports no additional complaints Reports as per HPI Physical Exam Vital Signs: Last Vital Signs Pulse 99 06/02/23 13:19 BP 112/60 06/02/23 13:19 BMI result Body Mass Index 1.9 Const General: cooperative, healthy appearing and comfortable Chest Chest palpation & inspection: normal inspection of the chest and normal palpation of entire chest wall Breast/axilla inspection: normal inspection of the breasts and normal inspection of the axillae Breast/axilla palpation: normal palpation of the breasts, normal palpation of the axillae and no axillary lymphadenopathy Resp Effort & Inspection: normal respiratory effort Auscultation: clear to auscultation bilaterally Percussion: percussion normal Cardio Palpation: normal PMI Rate: regular rate Rhythm: regular rhythm Heart sounds: no murmurs and no rubs Peripheral pulses: Peripheral pulses 2+ throughout GI Inspection: Yes normal to inspection Palpation (GI): Soft to palpation, nontender, no guarding, not rigid and No hepatosplenomegaly present Percussion: Yes normal to percussion Auscultation: normal bowel sounds Rectal Exam - Female: deferred General: Yes bladder normal to palpation External Female Exam: No lesion Speculum Exam - Vagina: normal appearance of the vagina, normal palpation, normal vaginal discharge and not erythematous Speculum Exam - Cervix: normal appearance of the cervix and normal palpation Bimanual exam- vagina & uterus: normal bimanual exam, normal palpation, uterine size normal, bladder normal to palpation, consistency normal and normal palpation Bimanual Exam- Adnexa, other: normal adnexae, no masses and no tenderness Assessment & Plan Assessment & Plan (1) Well woman exam: Code(s): Z01.419 - Encounter for gynecological examination (general) (routine) without abnormal findings Plan: Co testing done. Counseled the patient about the recommended dietary allowance of 1200 mg of Calcium & 600 IU of vitamin D. Instructions given the patient to schedule next screening Mammogram in 10/16. The patient was instructed to perform monthly self-breast exams and schedule annual exam in a year. All questions answered and the patient verbalized understanding. (2) At risk for osteoporosis: Comment: Weight less than 127 lb Code(s): Z91.89 - Other specified personal risk factors, not elsewhere classified Plan: Thin the patient weighs less than 127 lb, will order DEXA scan for early screening for osteoporosis. Instructions given the patient to schedule in 2 weeks DEXA scan follow-up appointment. Orders: Orders XR DEXA axial skeleton Today Z78.0 - Asymptomatic menopausal state Coding Level of Care Code New Pt Prev Care 40-64y(99532) Diagnoses Well woman exam Z01.419 At risk for osteoporosis Z91.89
[2023-06-02 13:19] VITALS: BP 112/60; PULSE 99
== END 2023-06-02 13:35 | disposition home or self-care (01) ==
LOC: HO.HWS 13:01
PROVIDERS: PCP Internal Medicine; Visit Provider Obstetrics & Gynecology
DX: Z01.419 Encounter for gynecological examination (general) (routine) without abnormal findings (principal); Z91.89 Other specified personal risk factors, not elsewhere classified
CPT/HCPCS: 99386

== ENCOUNTER 2023-06-02 13:01 | Outpatient (REF) | payer OTHER, SELFPAY ==
[2023-06-07 06:50] LABS: HPV mRNA E6/E7 rflx Not Detected (Not Detected)
== END 2023-06-02 13:02 | disposition home or self-care (01) ==
LOC: HO.LNP 13:01
PROVIDERS: PCP Internal Medicine; Visit Provider Obstetrics & Gynecology
DX: Z01.419 Encounter for gynecological examination (general) (routine) without abnormal findings (principal); Z91.89 Other specified personal risk factors, not elsewhere classified
CPT/HCPCS: 87624; 88142; 99386

== ENCOUNTER 2023-06-17 09:50 | Outpatient (REF) | payer OTHER, SELFPAY ==
--- NOTE | ~2023-06-17 | MM_ITS ---
EXAMINATION: BONE DENSITOMETRY CLINICAL INDICATION: Asymptomatic menopausal state. COMPARISON: This is the patient's baseline examination. TECHNIQUE: Using a [employer] DXA System (software version: 13.1) manufactured by [employer], dual-energy x-ray absorptiometry was performed of the lumbar spine and left hip. The images are of good technical quality. Summary results are attached. FINDINGS: AP SPINE L1-L2 (excluding L3 and L4): The data of L1-L4 has been changed to exclude the L3 and L4 vertebral bodies, because degenerative sclerosis at these levels may cause overestimation of lumbar spine density. BMD 0.800 g/cm2, Z-score -1.3, T-score -3.0, osteoporosis. LEFT FEMUR, NECK: BMD 0.688 g/cm2, Z-score -1.0, T-score -2.5, osteoporosis. LEFT FEMUR, TOTAL: BMD 0.744 g/cm2, Z-score -0.8, T-score -2.1, osteopenia. IDENTIFIED RISK FACTORS: Menopause. HISTORY OF FRACTURE: None listed. MEDICATIONS: Vitamin D. MM/XR DEXA axial skeleton IMPRESSION: 1. DIAGNOSIS: Osteoporosis based on the lowest T-score value of -3.0 in the lumbar spine applying World Health Organization criteria. 2. 10-YEAR FRACTURE RISK PREDICTION, FRAX: According to the guidelines, FRAX calculation should only be performed on patients in the osteopenia bone density category. Therefore, FRAX was not performed on this patient. 3. Treatment Recommendations: NOF guidelines recommend consideration for treatment in postmenopausal women and men age 50 and older presenting with the following: -A hip or vertebral (clinical or morphometric) fracture. -T-score less than or equal to -2.5 at the femoral neck or spine after appropriate evaluation to exclude secondary causes. -Low bone mass at the hip or spine and a 10-year fracture probability by FRAX of greater than or equal to 3% for hip fracture or greater than or equal to 20% for major osteoporotic fracture based on the [place] adapted WHO algorithm. 4. Other Recommendations: All treatment decisions require clinical judgment and consideration of individual patient factors, including patient preferences, comorbidities, previous drug use, risk factors not captured in the FRAX model (e.g. frailty, falls, vitamin D deficiency, increased bone turnover, interval significant decline in bone density) and possible under or overestimation of fracture risk by FRAX. Additional medical evaluation for secondary cause of low bone mineral density may be appropriate. FUTURE SCAN RECOMMENDATION: People with diagnosed cases of osteoporosis or at high risk for fracture should have regular bone mineral density tests. For patients eligible for Medicare, routine testing is allowed once every 2 years. The testing frequency can be increased to one year for patients who have rapidly progressing disease, those who are receiving or discontinuing medical therapy to restore bone mass, or have additional risk factors.
== END 2023-06-17 09:51 | disposition home or self-care (01) ==
LOC: HO.MAMMO 09:50
PROVIDERS: PCP Internal Medicine; Visit Provider Obstetrics & Gynecology
DX: Z13.820 Encounter for screening for osteoporosis (principal); Z78.0 Asymptomatic menopausal state
CPT/HCPCS: 77080

== ENCOUNTER 2023-07-22 14:41 | Outpatient (AMB) | payer OTHER, SELFPAY ==
--- NOTE | 2023-07-22 14:53 | MHC.OFFVIS ---
Intake Vital Signs 07/22/23 14:55 Height 5 ft 3 in Weight 116 lb 6.602 oz BMI 20.6 BP 114/60 Intake Visit Reasons: dexa follow up Allergies codeine [CODEINE] Allergy (Unknown, Verified 06/02/23 13:19) can't sleep erythromycin base [ERYTHROMYCIN BASE] Allergy (Unknown, Verified 06/02/23 13:19) Rash penicillin V Allergy (Unknown, Verified 06/02/23 13:19) Unknown Penicillins [PENICILLINS] Allergy (Unknown, Verified 06/02/23 13:19) Rash HPI HPI Comments History of Present Illness Details The patient is presenting for follow up regarding DEXA scan results. T score @ spine and femoral Neck respectively were=-3 /-2.5 . PFSH Medical History No pertinent past medical history Surgical History H/O breast biopsy Hx of colonoscopy Review of Systems Const All systems reviewed & are unremarkable except as noted in HPI and below Reports as per HPI and Reports no additional complaints GI Reports no additional complaints Reports no additional complaints Physical Exam Vital Signs: Last Vital Signs BP 114/60 07/22/23 14:55 BMI result Body Mass Index 20.6 Assessment & Plan Assessment & Plan (1) Osteoporosis: Comment: Very high-risk for fracture Code(s): M81.0 - Age-related osteoporosis without current pathological fracture Plan: Discussed with the patient the results of DEXA scan, T-score at -3 at the spine level showing significant osteoporosis high-risk for fracture, therefore recommend referral to rheumatology for further management. All questions answered, the patient verbalized understanding. Orders: Referrals Rheumatology Referral M81.0 - Age-related osteoporosis without current pathological fracture Coding Level of Care Code Est Pt Level 3 (47798) Diagnoses Osteoporosis M81.0
[2023-07-22 14:55] VITALS: BP 114/60; BMI 20.6
== END 2023-07-22 15:10 | disposition home or self-care (01) ==
LOC: HO.HWS 14:41
PROVIDERS: PCP Internal Medicine; Visit Provider Obstetrics & Gynecology
DX: M81.0 Age-related osteoporosis without current pathological fracture (principal)
CPT/HCPCS: 99213

== ENCOUNTER → 2023-07-22 14:41 | Outpatient (BNVA) | payer OTHER, SELFPAY | PROVIDERS: PCP Internal Medicine; Visit Provider Obstetrics & Gynecology | DX: M81.0 Age-related osteoporosis without current pathological fracture (principal) | CPT/HCPCS: 99212 ==

== ENCOUNTER 2023-09-18 10:49 | Outpatient (AMB) | payer OTHER, SELFPAY ==
--- NOTE | 2023-09-18 11:03 | A.OFFVIS_ITS ---
Vital Signs 09/18/23 11:05 Height 5 ft 3 in Weight 114 lb 10.246 oz BMI 20.3 BP 108/62 Blood Pressure Location Rt brachial Position Sitting Pulse 57 Pulse Source Pulse Oximeter Pulse Oximetry (%) 95 Oxygen Delivery Method Room Air Intake Visit Reasons: osteoporosis Intake Note: New patient presents today for osteoporosis consult, internally referred by youth services librarian Dr Hale. Operations Professional Required: No Accompanied by: Self / Same As Patient Allergies codeine [CODEINE] Allergy (Unknown, Verified 09/18/23 11:17) can't sleep erythromycin base [ERYTHROMYCIN BASE] Allergy (Unknown, Verified 09/18/23 11:17) Rash penicillin V Allergy (Unknown, Verified 09/18/23 11:17) Unknown Penicillins [PENICILLINS] Allergy (Unknown, Verified 09/18/23 11:17) Rash Medication List - Last Reconciled 09/18/23 by Victor Hugo Mayorga MD No Known Home Meds HPI Comments Details: This is a 63-year-old female who presents for evaluation of osteoporosis. Recent DEXA scan the osteoporosis range. Patient is asymptomatic. States that her mother has osteoporosis and has broken her wrist. 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 Female Reproductive History Menstrual Age of menopause: 53 Total pregnancies: 2 Full term: 2 Ab induced: 0 Ab spontaneous: 0 Review of Systems Musc Denies arthralgias and Denies joint swelling Physical Exam Vital Signs: Last Vital Signs Pulse 57 09/18/23 11:05 BP 108/62 09/18/23 11:05 Pulse Ox 95 09/18/23 11:05 Oxygen Delivery Method Room Air 04/25/24 11:05 BMI result Body Mass Index 20.3 Const General: cooperative, healthy appearing and comfortable Nutritional Appearance: thin Orientation/consciousness: patient oriented x3 Limitations: no limitations HEENT Head: Yes normocephalic and Yes atraumatic Resp Effort & Inspection: normal respiratory effort and able to speak in complete sentences Neuro General: patient oriented x3 Results Reviewed Results Reviewed: [facility] [address] [place] [address] Mammography Report Signed Patient: Blanca Anderson MR#: [id number] : 1960 Acct:[id number] Age/Sex: 63 / F ADM Date: 06/17/23 Loc: HO.MAMMO Attending Dr: Bulmaro Hale MD Ordering Physician: Bulmaro Hale MD Results: Date of Service: 06/17/23 Follow Up: Procedure(s): XR DEXA axial skeleton Accession Number(s): [id number] cc: Demetrio Sharif DO; Bulmaro Hale MD~ EXAMINATION: BONE DENSITOMETRY CLINICAL INDICATION: Asymptomatic menopausal state. COMPARISON: This is the patient's baseline examination. TECHNIQUE: Using a [employer] DXA System (software version: 13.1) manufactured by [employer], dual-energy x-ray absorptiometry was performed of the lumbar spine and left hip. The images are of good technical quality. Summary results are attached. FINDINGS: AP SPINE L1-L2 (excluding L3 and L4): The data of L1-L4 has been changed to exclude the L3 and L4 vertebral bodies, because degenerative sclerosis at these levels may cause overestimation of lumbar spine density. BMD 0.800 g/cm2, Z-score -1.3, T-score -3.0, osteoporosis. LEFT FEMUR, NECK: BMD 0.688 g/cm2, Z-score -1.0, T-score -2.5, osteoporosis. LEFT FEMUR, TOTAL: BMD 0.744 g/cm2, Z-score -0.8, T-score -2.1, osteopenia. IDENTIFIED RISK FACTORS: Menopause. HISTORY OF FRACTURE: None listed. MEDICATIONS: Vitamin D. MM/XR DEXA axial skeleton IMPRESSION: 1. DIAGNOSIS: Osteoporosis based on the lowest T-score value of -3.0 in the lumbar spine applying World Health Organization criteria. 2. 10-YEAR FRACTURE RISK PREDICTION, FRAX: According to the guidelines, FRAX calculation should only be performed on patients in the osteopenia bone density category. Therefore, FRAX was not performed on this patient. Assessment & Plan Assessment & Plan (1) Osteoporosis: Comment: Very high-risk for fracture Code(s): M81.0 - Age-related osteoporosis without current pathological fracture Category: Medical Qualifiers: Osteoporosis type: age-related Presence of current pathological fracture: without current pathological fracture Qualified Code(s): M81.0 - Age- related osteoporosis without current pathological fracture Plan: This is a 63-year-old female who presents for evaluation of osteoporosis. Her DEXA scan is consistent with osteoporosis and she qualifies for antiresorptives therapy. Patient had multiple questions about osteoporosis and different medications used. Will order labs to evaluate for secondary causes of osteoporosis. Follow-up in about 6 weeks Plan I spent 30 minutes reviewing patient's chart, evaluating patient, ordering diagnostic workup, counseling patient and documenting in the chart Orders: Orders Parathyroid Hormone Intact Today M81.0 - Age-related osteoporosis without current pathological fracture TSH reflex Free T4 Today M81.0 - Age-related osteoporosis without current pathological fracture Phosphorus Today M81.0 - Age-related osteoporosis without current pathological fracture Comprehensive Met. Panel Today M81.0 - Age-related osteoporosis without current pathological fracture Protein Electrophoresis, Serum Today M81.0 - Age-related osteoporosis without current pathological fracture Vitamin D 25-OH Total Today M81.0 - Age-related osteoporosis without current pathological fracture Magnesium Today M81.0 - Age-related osteoporosis without current pathological fracture Complete Blood Count Auto Diff Today M81.0 - Age-related osteoporosis without current pathological fracture Other Ref Test - Misc Today M81.0 - Age-related osteoporosis without current pathological fracture Coding Level of Care Code New Pt Level 3 (45716) Diagnoses Age-related osteoporosis without current pathological fracture M81.0 Osteoporosis type: age-related Presence of current pathological fracture: without current pathological fracture
[2023-09-18 11:05] VITALS: BP 108/62; PULSE 57; O2SAT 95; BMI 20.3
== END 2023-09-18 11:41 | disposition home or self-care (01) ==
PROVIDERS: PCP Internal Medicine; Visit Provider Student in an Organized Health Care Education/Training Program
DX: M81.0 Age-related osteoporosis without current pathological fracture (principal)
CPT/HCPCS: 99203

== ENCOUNTER → 2023-09-18 10:49 | Outpatient (BNVA) | payer OTHER, SELFPAY | PROVIDERS: PCP Internal Medicine; Visit Provider Student in an Organized Health Care Education/Training Program | DX: M81.0 Age-related osteoporosis without current pathological fracture (principal) | CPT/HCPCS: 99202 ==

== ENCOUNTER 2023-09-18 12:03 | Outpatient (REF) | payer OTHER, SELFPAY ==
[2023-09-18 13:16] LABS: MANUAL DIFF FLAG NO
[2023-09-18 13:21] LABS: Basophils Percent Auto 0.6 % (0-2); Eosinophils Absolute Auto 0.1 X10*3/uL (0.0-0.4); Eosinophils Percent Auto 1.2 % (0-4); Hematocrit 43.7 % (37.0-47.0); Hemoglobin 14.7 g/dl (12.0-16.0); Lymphocytes Absolute Auto 2.1 X10*3/uL (1.2-4.9); Lymphocytes Percent Auto 44.3 % (20-40); Mean Corpuscular HGB Conc 33.6 g/dl (31.0-35.0); Mean Corpuscular Hemoglobin 29.1 pg (27.0-33.0); Mean Corpuscular Volume 86.5 fL (80.0-98.0); Mean Platelet Volume 9.9 fL (9.4-12.3); Monocytes Absolute Auto 0.3 X10*3/uL (0.1-1.2); Monocytes Percent Auto 6.7 % (2-11); Neutrophils Absolute Auto 2.3 x10*3/uL (2.0-8.3); Neutrophils Percent Auto 47.2 % (45-73); Platelet Count 313 X10*3/uL (160-400); Red Blood Count 5.05 X10*6/uL (4.20-5.50); Red Cell Distribution Width 14.2 % (11.0-16.0); White Blood Count 4.8 X10*3/uL (4.8-10.8)
[2023-09-18 13:40] LABS: Alanine Aminotransferase 65 U/L (0-31); Albumin Level 4.7 g/dL (3.5-5.0); Alkaline Phosphatase 118 U/L (39-117); Anion Gap 10 (12-20); Aspartate Amino Transferase 46 U/L (5-31); Bilirubin Total 0.4 mg/dL (0.0-1.0); Blood Urea Nitrogen 18 mg/dL (9-16); Calcium 10.2 mg/dL (8.4-10.2); Carbon Dioxide 29 mmol/L (22-29); Chloride 107 mmol/L (96-108); Estimated Glomerular Filt Rate > 60; Glucose Random 85 mg/dL (60-115); Magnesium 2.4 mg/dL (1.6-2.6); Phosphorus 3.2 mg/dL (2.7-4.5); Potassium 4.6 mmol/L (3.3-5.1); Sodium 141 mmol/L (135-145); Total Protein 7.9 g/dL (6.5-8.0)
[2023-09-18 15:12] LABS: Parathyroid Hormone Intact 51.1 pg/mL (8.7-77.1)
[2023-09-22 12:04] LABS: Prot Elec - Albumin 4.8 g/dL (3.8-4.8); Prot Elec - Alpha1 0.2 g/dL (0.2-0.3); Prot Elec - Alpha2 0.6 g/dL (0.5-0.9); Prot Elec - Beta 1 0.5 g/dL (0.4-0.6); Prot Elec - Beta 2 0.4 g/dL (0.2-0.5); Prot Elec - Gamma 0.7 g/dL (0.8-1.7); Prot Elec - Total Protein 7.2 g/dL (6.1-8.1)
== END 2023-09-18 12:04 | disposition home or self-care (01) ==
LOC: HO.10HDL 12:03
PROVIDERS: Visit Provider Student in an Organized Health Care Education/Training Program
DX: M81.0 Age-related osteoporosis without current pathological fracture (principal)
CPT/HCPCS: 36415; 80053; 82306; 83735; 83970; 84100; 84165; 84443; 85025

== ENCOUNTER 2024-04-12 09:08 | Outpatient (REF) | payer OTHER, SELFPAY ==
[2024-04-12 13:18] LABS: MANUAL DIFF FLAG NO
[2024-04-12 13:33] LABS: Basophils Absolute Auto 0.1 X10*3/uL (0.0-0.2); Eosinophils Absolute Auto 0.4 X10*3/uL (0.0-0.4); Eosinophils Percent Auto 7.4 % (0-4); Hematocrit 47.1 % (37.0-47.0); Hemoglobin 15.6 g/dl (12.0-16.0); Imm Gran Abs Auto 0.01 X10*3/uL (0.00-0.03); Imm Gran Pct Auto 0.2 % (0.0-0.4); Lymphocytes Absolute Auto 2.4 X10*3/uL (1.2-4.9); Lymphocytes Percent Auto 46.9 % (20-40); Mean Corpuscular HGB Conc 33.1 g/dl (31.0-35.0); Mean Corpuscular Hemoglobin 29.1 pg (27.0-33.0); Mean Corpuscular Volume 87.7 fL (80.0-98.0); Mean Platelet Volume 10.4 fL (9.4-12.3); Monocytes Absolute Auto 0.4 X10*3/uL (0.1-1.2); Monocytes Percent Auto 8.5 % (2-11); Neutrophils Absolute Auto 1.9 x10*3/uL (2.0-8.3); Platelet Count 306 X10*3/uL (160-400); Red Blood Count 5.37 X10*6/uL (4.20-5.50); Red Cell Distribution Width 14.3 % (11.0-16.0); White Blood Count 5.2 X10*3/uL (4.8-10.8)
[2024-04-12 14:20] LABS: Albumin Level 4.3 g/dL (3.5-5.0); Alkaline Phosphatase 100 U/L (39-117); Anion Gap 11 (12-20); Aspartate Amino Transferase 48 U/L (5-31); Bilirubin Total 0.6 mg/dL (0.0-1.0); Blood Urea Nitrogen 18 mg/dL (9-16); Calcium 9.8 mg/dL (8.4-10.2); Carbon Dioxide 27 mmol/L (22-29); Chloride 108 mmol/L (96-108); Cholesterol 265 mg/dL (<200); Estimated Glomerular Filt Rate > 60; Glucose Fasting 87 mg/dL (60-99); HDL Cholesterol 83 mg/dL (>40); LDL Cholesterol Calculated 167 mg/dL (<100); Potassium 4.9 mmol/L (3.3-5.1); Sodium 141 mmol/L (135-145); Total Protein 7.2 g/dL (6.5-8.0); Triglycerides 78 mg/dL (<150)
[2024-04-12 14:23] LABS: Alanine Aminotransferase 55 U/L (0-31); Thyroid Stimulating Hormone 1.87 uIU/mL (0.32-4.0); Vitamin D 25-OH Total 96.5 ng/mL (>30)
== END 2024-04-12 09:09 | disposition home or self-care (01) ==
LOC: HO.HMGCLDS 09:08
PROVIDERS: PCP Internal Medicine; Visit Provider Internal Medicine
DX: Z00.00 Encounter for general adult medical examination without abnormal findings (principal); M81.0 Age-related osteoporosis without current pathological fracture
CPT/HCPCS: 36415; 80053; 80061; 82306; 84443; 85025

== ENCOUNTER 2024-11-05 09:44 | Outpatient (AMB) | payer OTHER, SELFPAY ==
--- NOTE | 2024-11-05 09:49 | A.OFFPC_ITS ---
Vital Signs 11/05/24 09:50 Height 5 ft 2.99 in Weight 109 lb 2 oz BMI 19.3 BP 116/70 Blood Pressure Location Rt brachial Position Sitting Respiration 12 Pulse 75 Pulse Source Pulse Oximeter Temp 97.7 F Temp Source Temporal Artery Scan Pulse Oximetry (%) 96 Oxygen Delivery Method Room Air Intake Visit Reasons: Swelling, left pubic area Family Preservation Caseworker Required: No Accompanied by: Self / Same As Patient Allergies codeine [CODEINE] Allergy (Unknown, Verified 11/05/24 10:06) can't sleep erythromycin base [ERYTHROMYCIN BASE] Allergy (Unknown, Verified 11/05/24 10:06) Rash penicillin V Allergy (Unknown, Verified 11/05/24 10:06) Unknown Penicillins [PENICILLINS] Allergy (Unknown, Verified 11/05/24 10:06) Rash Medication List - Last Reconciled 11/05/24 by Jannet Zuniga PA-C No Known Home Meds Tobacco use date assessed: 11/05/24 Dental Screening Dental Screen Date: 11/05/24 Did you have a dental visit in the last 12 months?: Yes Did you have a dental problem in the last 6 months where you did not have access to dental care?: No Was dental information given to patient?: Patient has dentist HPI Swelling, left pubic area HPI Details The patient is a 64-year-old female presenting with a suspected inguinal hernia. She noticed a bulge on the left side of her abdomen about a month ago, which is more visible when standing and is reducible. She has a history of osteoporosis, leading her to engage in weightlifting and gardening, which may have contributed to the hernia. The patient also has hyperlipidemia, linked to dietary changes, with normal triglycerides and a favorable cholesterol ratio. Social History - Exercise: Engages in weightlifting and gardening as part of her routine. - Diet: Following a carnivore diet due t o her 's dietary habits. [facility] Medical History (Updated 11/05/24 @ 10:44 by Jannet Zuniga PA-C) Pure hypercholesterolemia, unspecified Hyperlipidemia Inguinal hernia Fibroadenoma of right breast Vitamin D deficiency Cystitis Vertigo Establishing care with new doctor, encounter for No pertinent past medical history Surgical History H/O wisdom tooth extraction H/O myringotomy H/O breast biopsy Hx of colonoscopy (~10/14/22) Family History Mother Graves disease Osteoporosis Father T-cell lymphoma Social History Household Members: Spouse Housing: House Alcohol intake: current Alcohol intake frequency: a few times a week Alcohol type: wine Patient Tobacco Use Status: Never used Tobacco Tobacco use type: Cigarette e-Cigarette/Vaping Use: Never Used service: No Current occupational status: employed and retired 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 1. Little interest or pleasure in doing things: not at all 2. Feeling down, depressed, or hopeless: not at all 3. Trouble falling or staying asleep, or sleeping too much: not at all 4. Feeling tired or having little energy: not at all 5. Poor appetite or overeating: not at all 6. Feeling bad about yourself - or that you are a failure or have let yourself or your family down: not at all 7. Trouble concentrating on things, such as reading the newspaper or watching television: not at all 8. Moving or speaking so slowly that other people could have noticed. Or the opposite - being so fidgety or restless that you have been moving around a lot more than usual: not at all 9. Thoughts that you would be better off or of hurting yourself in some way: not at all Total score: 0 Depression Screening Interpretation: Negative Depression Screening Done: Yes 02320 - PHQ-9 Billing: Yes Source: Developed by Drs. Demetrio Berger, Layne Hernández, Iban Briceno and colleagues, with an educational wei from [employer]. Thrive Questionnaire Date Thrive assessed: 11/05/24 I am a: Patient What is your living situation today?: I have a steady place to live Within the past 12 months, did the food you bought not last and you didn't have the money to get more?: Never true Within the past 12 months, did you worry whether your food would run out before you got money to buy more?: Never true Do you have trouble paying for medicines?: No Do you have trouble getting transportation to medical appointments?: No Do you have trouble paying your heating and electricity bill?: No Do you have trouble taking care of your child, family member or friend?: No Do you have trouble with day-to-day activities such as bathing, preparing meals, shopping, managing finances, etc.?: No Are you currently unemployed and looking for a job?: No Are you interested in more education?: No Please select the resources that you would like help with: None Currently or been in a relationship where the following occur: No concerns reported THRIVE Score: 0 AUDIT C Alcohol Use Questionnaire (AUDIT-C) 1. How often do you have a drink containing alcohol?: 2-3 times a week 2. How many drinks containing alcohol do you have on a typical day when you are drinking?: 1 or 2 3. How often do you have six or more drinks on one occasion?: Never Total Score: 3 Score Reviewed/Action Taken: No MARIA DEL CARMEN-7 AMB Questionnaire MARIA DEL CARMEN-7 Date MARIA DEL CARMEN - 7 assessed: 11/05/24 Feeling nervous, anxious, or on edge: 0 = Not at all Not being able to stop or control worryin = Not at all Worrying too much about different things: 0 = Not at all Trouble relaxin = Not at all Being so restless that it is hard to sit still: 0 = Not at all Becoming easily annoyed or irritable: 0 = Not at all Feeling afraid as if something awful might happen: 0 = Not at all Total MARIA DEL CARMEN-7 score (0-4 normal; 5-9 mild; 10-14 moderate; 15-21 severe): 0 Source: Developed by Drs. Demetrio Berger, Layne Hernández, Iban Briceno and colleagues, with an educational wei from [employer]. MARIA DEL CAMREN-7 Assessment Billing MARIA DEL CARMEN-7 Assessment Tool: MARIA DEL CARMEN-7 Assessment 78244 Review of Systems Const Details: - Gastrointestinal: Reports a reducible bulge in the inguinal area, denies abdominal pain or changes in bowel habits. - Genitourinary: Denies dysuria or hematuria. Physical exam (Primary Care) Vital Signs: Last Vital Signs Temp 97.7 F 11/05/24 09:50 Pulse 75 11/05/24 09:50 Resp 12 11/05/24 09:50 BP 116/70 11/05/24 09:50 Pulse Ox 96 11/05/24 09:50 Oxygen Delivery Method Room Air 11/05/24 09:50 Care Plan Goal for BP management: <140/90 at Goal BMI result Body Mass Index 19.3 normal bmi Tobacco/Smoking Status: Tobacco use Status Tobacco use date assessed 11/05/24 11/05/24 09:56 Patient Tobacco Use Status Never used Tobacco 11/05/24 10:04 Tobacco use type Cigarette 11/05/24 10:04 e-Cigarette/Vaping Use Never Used 11/05/24 10:04 PHQ-9: PHQ-9 Score PHQ-9: Total score 0 11/05/24 09:56 Depression Screening Interpretation: Negative Thrive Assessment: Date of Thrive Assessment Date Thrive assessed 11/05/24 11/05/24 09:56 Currently or been in a relationship where the following occur: No concerns reported Const Other: Appearance: Alert. Oriented X3. No acute distress. Head: Normal external exam. Normocephalic. Atraumatic. Eyes: Pupils are equal, round, and reactive to light. Extraocular movements intact. Conjunctiva and sclera normal. Eyelids normal. Throat: Pharynx normal. Uvula midline. Moist mucous membranes. Neck: Normal inspection. Neck supple. Full range of motion. Cardiovascular: Normal heart rate and rhythm. Heart sound normal. No murmurs noted. Pulses normal throughout. Respiratory: No respiratory distress. Painless inspiration. Breath sounds n ormal. No wheezes/rales/rhonchi noted. Chest nontender. No accessory muscle usage noted or decreased air movement noted. Abdomen: Soft and nontender. Bowel sounds normal in all 4 quadrants. No distent ion noted. No organomegaly noted. No visible injury noted. Noted a bulge on left awake/inguinal area, possibly a hernia, which is palpable when standing. Back: No costovertebral angle tenderness. Full range of motion noted. Skin: Skin warm and dry. Normal skin color. Normal skin turgor. No rashes/lesions/lacerations noted. Extremities: Extremities exhibit normal range of motion. Extremities nontender. Neuro: Oriented X 3. No motor deficit. No sensory deficit. Reflexes normal. Results Reviewed Results Reviewed: - Labs: Previous blood work in March showed elevated cholesterol levels, normal triglycerides. Coding Level of Care Code Est Pt Level 4 (68563) Complex EM visit Add On G2211 Diagnoses Inguinal hernia K40.90 Age-related osteoporosis without current pathological fracture M81.0 Osteoporosis type: age-related Presence of current pathological fracture: without current pathological fracture Hyperlipidemia E78.5 Pure hypercholesterolemia, unspecified E78.00 Additional Codes PHQ-9 - 00627 - PHQ-9 Billing: Yes ([id number]) MARIA DEL CARMEN-7 Assessment Billing - MARIA DEL CARMEN-7 Assessment Tool: MARIA DEL CARMEN-7 Assessment 83185 ([id number]) Assessment & Plan Assessment & Plan (1) Inguinal hernia: Code(s): K40.90 - Unilateral inguinal hernia, without obstruction or gangrene, not specified as recurrent Category: Medical Plan: An ultrasound is scheduled to evaluate the inguinal hernia, with surgical consultation if symptoms worsen. (2) Osteoporosis: Comment: Very high-risk for fracture Code(s): M81.0 - Age-related osteoporosis without current pathological fracture Category: Medical Qualifiers: Osteoporosis type: age-related Presence of current pathological fracture: without current pathological fracture Qualified Code(s): M81.0 - Age- related osteoporosis without current pathological fracture Plan: The patient should continue weightlifting to manage osteoporosis. Condition is chronic and stable will continue to monitor. (3) Hyperlipidemia: Code(s): E78.5 - Hyperlipidemia, unspecified Category: Medical Plan: Cholesterol levels will be re-evaluated with a follow-up blood test, and dietary adjustments are recommended. Condition is chronic and stable will continue to monitor. (4) Pure hypercholesterolemia, unspecified: Code(s): E78.00 - Pure hypercholesterolemia, unspecified Category: Medical Plan: Cholesterol levels will be re-evaluated with a follow-up blood test, and dietary adjustments are recommended. Condition is chronic and stable will continue to monitor. Plan Plan Patient was informed and verbally consented to the use of an ambient scribe for clinic note documentation during this visit. 1. Inguinal Hernia An ultrasound is scheduled to evaluate the inguinal hernia, with surgical consultation if symptoms worsen. 2. Osteoporosis The patient should continue weightlifting to manage osteoporosis. 3. Hyperlipidemia Cholesterol levels will be re-evaluated with a follow-up blood test, and dietary adjustments are recommended. We discussed the likelihood of an inguinal hernia and the plan to confirm it with an ultrasound. I explained that if the hernia becomes symptomatic, surgical intervention might be necessary. We also reviewed the patient's hyperlipidemia and the impact of dietary changes, agreeing to monitor her cholesterol levels. The importance of continuing weightlifting for osteoporosis management was emphasized. Orders: Orders C Reactive Protein Today Z00.00 - Encounter for general adult medical examination without abnormal findings Liver Panel Today Z00.00 - Encounter for general adult medical examination without abnormal findings Hemoglobin A1c Today Z00.00 - Encounter for general adult medical examination without abnormal findings TSH reflex Free T4 Today Z00.00 - Encounter for general adult medical examination without abnormal findings Vitamin B12 and Folate Today Z00.00 - Encounter for general adult medical examination without abnormal findings Magnesium Today Z00.00 - Encounter for general adult medical examination without abnormal findings Vitamin D 25-OH Total Today Z00.00 - Encounter for general adult medical examination without abnormal findings US Extremity Nonvas Limited LT Today K40.90 - Unilateral inguinal hernia, without obstruction or gangrene, not specified as recurrent Complete Blood Count Auto Diff Today Z00.00 - Encounter for general adult medi gibson examination without abnormal findings Comprehensive [place]. Panel Fast Today Z00.00 - Encounter for general adult medical examination without abnormal findings Lipid Panel Today Z00.00 - Encounter for general adult medical examination without abnormal findings Patient Instructions: - Schedule and complete the ultrasound of the inguinal area. - Monitor the hernia for any changes in size or pain. - Continue weightlifting to help manage osteoporosis. - Follow a balanced diet and monitor cholesterol levels.
[2024-11-05 09:50] VITALS: BP 116/70; PULSE 75; RESP 12; TEMP 36.5; O2SAT 96; BMI 19.3
== END 2024-11-05 10:32 | disposition home or self-care (01) ==
LOC: HO.HMCSH 09:44
PROVIDERS: PCP Internal Medicine; Visit Provider Physician Assistant Medical
DX: K40.90 Unilateral inguinal hernia, without obstruction or gangrene, not specified as recurrent (principal); M81.0 Age-related osteoporosis without current pathological fracture; E78.5 Hyperlipidemia, unspecified; E78.00 Pure hypercholesterolemia, unspecified

== ENCOUNTER → 2024-11-05 09:44 | Outpatient (BNVA) | payer OTHER, SELFPAY | PROVIDERS: PCP Internal Medicine; Visit Provider Physician Assistant Medical | DX: M81.0 Age-related osteoporosis without current pathological fracture (principal); K40.90 Unilateral inguinal hernia, without obstruction or gangrene, not specified as recurrent; E78.00 Pure hypercholesterolemia, unspecified | CPT/HCPCS: 96127; 99212 ==

== ENCOUNTER 2024-12-14 08:26 | Outpatient (REF) | payer OTHER, SELFPAY ==
--- NOTE | ~2024-12-14 | US_ITS ---
EXAMINATION: US PELVIS, LIMITED/FOLLOW UP TECHNIQUE: Grayscale and color Doppler imaging was performed in the left inguinal region. CLINICAL INFORMATION: Left inguinal lump K40.90 - Unilateral inguinal hernia, without obstruction or gangrene COMPARISON: None available. FINDINGS: There is a slightly hypoechoic mass protruding from the left inguinal region measuring 1.2 cm diameter and 3 cm in long axis. It has a solid appearance but is hypovascular. No other mass, fluid collection, or other abnormality is seen. US/US pelvic limited IMPRESSION: Left inguinal hernia. Electronically signed by: aHmmad Gonzales MD 12/14/2024 02:20 PM EDT
--- OUTSIDE RECORDS SUMMARY | 2024-12-14 08:39 | XMS_ITS | Clinical Summary ---
Author Organization [facility] Address [address] [place] [phone] Phone Care Team Providers Care Office Clinician Name Role Phone Pcp, Unknown Primary Care Provider Unavailabl e Allergies Active Allergy Reactions Criticality Noted Date Comments Erythromycin Hives 06/16/2024 Penicillin Hives 06/09/1988 Medications estradioL (ESTRACE) 0.01 % (0.1 mg/gram) vaginal cream Place 1 g vaginally daily for 7 days, THEN 1 g 2 (two) times a week. 42.5 g 1 5 06/23/19 26 Active Active Problems Problem Noted Date Diagnosed Date Osteoporosis 06/16/2024 Overview (06/16/2024): DEXA 2023? Done at [place] Family History Medical History Relation Comments Osteoporosis Mother Relation Status Comments Father Mother Social History Tobacco Use Types Packs/Day Years Used Date Smoking Tobacco: Never Smokeless Tobacco: Never Alcohol Use Standard Drinks/Week Comments Yes 0 (1 standard drink = 0.6 oz pur e alcohol) Education Answer Date Recorded Are you interested in more education? Not on laura e 04/02/2024 Are you concerned about learning? Not on file 04/02/2024 No 04/02/2024 No 04/02/2024 Digital Access Answer Date Recorded No 04/02/2024 No 04/02/2024 Reliable internet access at home? Not on file 04/02/2024 Device with a working camera? Not on file Comments No Sex and Gender Information Value Date Recorded Sex Assigned at Not on file Legal Sex Female 12:38 PM EST Gender Identity Not on file Sexual Orientation Not on file Last Filed Vital Signs Vital Sign Reading Time Taken Comments Blood Pressure 122/82 06/16/2024 10:20 AM EST Pulse - - Temperature - - Respiratory Rate - - Oxygen Saturation - - Inhaled Oxygen Concentration - - Weight 52.2 kg (115 lb) 06/16/2024 10:20 AM EST Height 160 cm (5' 3 ) 06/16/2024 10:20 AM EST Body Mass Index 20.37 06/16/2024 10:20 AM EST Plan of Treatment Health Maintenance Due Date Last Done Comments LIPID PANEL 1962 DEPRESSION SCREENING 1974 HEPATITIS C SCREENING 1980 HIV ONE-TIME SCREENING (18-65 YEARS) 1980 PAP SMEAR 1983 COLOGUARD 2007 COLONOSCOPY 2007 COLORECTAL CANCER SCREENING 2007 FIT TEST 2007 FOBT 2007 SIGMOIDOSCOPY 2007 VIRTUAL COLONOSCOPY 2007 PNEUMOCOCCAL VACCINES (50+ years) (1 of 1 - PCV) 2012 ZOSTER VACCINES (1 of 2) 2012 COVID-19 VACCINE ( season) 2024 03/07/2023, 05/05/2022, 03/06/2021, Additional history exists MAMMOGRAM 10/23/2024 10/23/2022, 02/24, 12/05/2015, Additional history exists Adult Td,Tdap Booster 10/14/2032 10/14/2022, 012 RSV VACCINE (1 - 1-dose 75+ series) 2037 SMOKING STATUS SCREENING (Once After 26 Yrs) Completed 06/16/2024 HEPATITIS A VACCINES Aged Out No long er eligible based on patient's age to complete this topic HIB VACCINES Aged Out No longer eligi ble based on patient's age to complete this topic MENINGOCOCCAL VACCINES (ACWY) Aged Out No longer eligible based on patient's age to complete this topic MENINGOCOCCAL VACCINES (B) Aged Out N o longer eligible based on patient's age to complete this topic Medical Devices Not on file Procedures Procedure Name Priority Date/Time Associated Diagnosis Comments BI MAMMOGRAM OUTSIDE (NO INTERPRETATION) Routine 10/23/2022 12:00 AM EDT from Last 3 Months or Most Recently Relevant to Health Maintenance Results * Mammogram Outside (No Interpretation) (10/23/2022 12:00 AM EDT) Narrative Record, 06/24/2024 10:58 AM EST This study is for PACS storage only and not for interpretation. Procedure Note Record, 06/24/2024 This study is for PACS storage only and not for interpretation. us Unknown Unknown MD NINA OUTSIDE IMAGING W/OUT INT ERPRETATION Final Result from Last 3 Months or Most Recently Relevant to Health Maintenance Insurance [facility] [employer] DIRECT [facility] [employer]ARE DIRECT [employer] [place] [address] [address] [employer] [place] [employer] [address] [place] [address] DIRECT Care Teams Office Clinician Relationship Specialty Start Date End Date Pcp, Unknown PCP - General 04/02/24 Additional Source Comments The information contained in this document represents components of the legal health record. It is not the complete legal health record.[facility]
[2024-12-14 10:39] LABS: MANUAL DIFF FLAG NO
[2024-12-14 10:45] LABS: Hematocrit 43.1 % (37.0-47.0); Hemoglobin 14.7 g/dl (12.0-16.0); Imm Gran Abs Auto 0.01 X10*3/uL (0.00-0.03); Imm Gran Pct Auto 0.2 % (0.0-0.4); Lymphocytes Absolute Auto 2.3 X10*3/uL (1.2-4.9); Mean Corpuscular HGB Conc 34.1 g/dl (31.0-35.0); Mean Corpuscular Hemoglobin 29.3 pg (27.0-33.0); Mean Corpuscular Volume 85.9 fL (80.0-98.0); NRBC Abs Auto 0.000 X10*3/uL (0.0-0.012); NRBC Pct Auto 0.0 /100WBC (0.0-0.2); Platelet Count 295 X10*3/uL (160-400); Red Blood Count 5.02 X10*6/uL (4.20-5.50); White Blood Count 4.9 X10*3/uL (4.8-10.8)
[2024-12-14 10:46] LABS: Hemoglobin A1C 129.6515 umol/L; Total Hemoglobin (HGBA1C) 3770.6211 umol/L
[2024-12-14 11:13] LABS: Alanine Aminotransferase 68 U/L (0-31); Albumin Level 4.1 g/dL (3.5-5.0); Alkaline Phosphatase 88 U/L (39-117); Anion Gap 13 (12-20); Aspartate Amino Transferase 55 U/L (5-31); Blood Urea Nitrogen 18 mg/dL (9-16); Calcium 9.0 mg/dL (8.4-10.2); Carbon Dioxide 23 mmol/L (22-29); Chloride 110 mmol/L (96-108); Cholesterol 255 mg/dL (<200); Estimated Glomerular Filt Rate > 60; HDL Cholesterol 77 mg/dL (>40); Magnesium 2.0 mg/dL (1.6-2.6); Potassium 4.2 mmol/L (3.3-5.1); Sodium 142 mmol/L (135-145); Total Protein 6.7 g/dL (6.5-8.0); Triglycerides 62 mg/dL (<150)
[2024-12-14 11:29] LABS: Folate 7.5 ng/mL (> or = 4.0); Vitamin B12 895 pg/mL (200-900)
== END 2024-12-14 08:27 | disposition home or self-care (01) ==
LOC: HO.HMGCX 08:26
PROVIDERS: PCP Internal Medicine; Visit Provider Physician Assistant Medical
DX: Z00.00 Encounter for general adult medical examination without abnormal findings (principal); K40.90 Unilateral inguinal hernia, without obstruction or gangrene, not specified as recurrent
CPT/HCPCS: 36415; 76857; 80053; 80061; 80076; 82248; 82306; 82607; 82746; 83036; 83735; 84443; 85025; 86140

== ENCOUNTER → 2024-12-14 13:50 | Outpatient (BNV) | payer OTHER, SELFPAY | PROVIDERS: PCP Internal Medicine; Visit Provider Radiology Diagnostic Radiology | DX: K40.90 Unilateral inguinal hernia, without obstruction or gangrene, not specified as recurrent (principal) | CPT/HCPCS: 76857 ==

== ENCOUNTER 2024-12-22 09:02 | Outpatient (AMB) | payer OTHER, SELFPAY ==
[2024-12-22 09:02] VITALS: BP 98/66; PULSE 61; RESP 16; TEMP 37; O2SAT 98; BMI 19.4
--- NOTE | 2024-12-22 09:02 | A.OFFPC_ITS ---
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 Required: No Accompanied by: Self / Same As Patient Allergies codeine (CODEINE) Allergy (Unknown, Verified 12/22/24 09:52) can't sleep erythromycin base (ERYTHROMYCIN BASE) Allergy (Unknown, Verified 12/22/24 09:52) Rash penicillin V Allergy (Unknown, Verified 12/22/24 09:52) Unknown Penicillins (PENICILLINS) Allergy (Unknown, Verified 12/22/24 09:52) Rash Medication List - Last Reconciled 12/22/24 by Jannet Zuniga PA-C No Known Home Meds Tobacco use date assessed: 11/05/24 Dental Screening Dental Screen Date: 11/05/24 Did you have a dental visit in the last 12 months?: Yes Did you have a dental problem in the last 6 months where you did not have access to dental care?: No Was dental information given to patient?: Patient has dentist HPI Physical HPI Details The patient is a 64-year-old female presenting with a physical examination and concerns regarding an inguinal hernia. The ultrasound revealed a small left inguinal hernia, which is not currently causing pain but has previously caused numbness down the leg. The patient is considering surgical consultation for further evaluation and management. The patient has a history of hypercholesterolemia, with recent lab results showing a total cholesterol of 255 mg/dL and LDL of 166 mg/dL. The patient prefers to manage cholesterol levels through dietary modifications rather than pharmacotherapy with statins. The patient reports elevated liver enzymes, which have been noted in past lab workups. There is no current abdominal pain, and the patient attributes the elevation to possible dietary factors or genetic predisposition. The patient has a history of osteoporosis, confirmed by a bone density test conducted a year ago. She is engaging in weight-bearing exercises and dietary changes to improve bone health. Social History - Employment: Part-time work at a [employer] owned by the patient and her . - Exercise: Engages in dancing and weigh t-bearing exercises for osteoporosis management. - Family: , owns a [employer] w here her . COUNTS INCLUDE 234 BEDS AT THE [facility] Medical History Left inguinal hernia Hyperlipidemia LDL goal <100 Mild hypercholesterolemia Elevated ALT measurement Elevated AST (SGOT) Pure hypercholesterolemia, unspecified Hyperlipidemia Inguinal hernia Fibroadenoma of right breast Vitamin D deficiency Cystitis Vertigo Establishing care with new doctor, encounter for No pertinent past medical history Surgical History H/O wisdom tooth extraction H/O myringotomy H/O breast biopsy Hx of colonoscopy (~10/14/22) Family History Mother Graves disease Osteoporosis Father T-cell lymphoma Social History Household Members: Spouse Housing: House Alcohol intake: current Alcohol intake frequency: a few times a week Alcohol type: wine Patient Tobacco Use Status: Never used Tobacco Tobacco use type: Cigarette e-Cigarette/Vaping Use: Never Used service: No Current occupational status: employed and retired 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 1. Little interest or pleasure in doing things: not at all 2. Feeling down, depressed, or hopeless: not at all 3. Trouble falling or staying asleep, or sleeping too much: not at all 4. Feeling tired or having little energy: not at all 5. Poor appetite or overeating: not at all 6. Feeling bad about yourself - or that you are a failure or have let yourself o r your family down: not at all 7. Trouble concentrating on things, such as reading the newspaper or watching television: not at all 8. Moving or speaking so slowly that other people could have noticed. Or the opposite - being so fidgety or restless that you have been moving around a lot more than usual: not at all 9. Thoughts that you would be better off or of hurting yourself in some way: not at all Total score: 0 Depression Screening Interpretation: Negative Depression Screening Done: Yes 84519 - PHQ-9 Billing: Yes Source: Developed by Drs. Demetrio Berger, Layne Hernández, Iban solis nd colleagues, with an educational wei from [employer]. Thrive Questionnaire Date Thrive assessed: 11/05/24 I am a: Patient What is your living situation today?: I have a steady place to live Within the past 12 months, did the food you bought not last and you didn't have the money to get more?: Never true Within the past 12 months, did you worry whether your food would run out before you got money to buy more?: Never true Do you have trouble paying for medicines?: No Do you have trouble getting transportation to medical appointments?: No Do you have trouble paying your heating and electricity bill?: No Do you have trouble taking care of your child, family member or friend?: No Do you have trouble with day-to-day activities such as bathing, preparing meals, shopping, managing finances, etc.?: No Are you currently unemployed and looking for a job?: No Are you interested in more education?: No Please select the resources that you would like help with: None Currently or been in a relationship where the following occur: No concerns reported THRIVE Score: 0 AUDIT C Alcohol Use Questionnaire (AUDIT-C) 1. How often do you have a drink containing alcohol?: 2-3 times a week 2. How many drinks containing alcohol do you have on a typical day when you are drinking?: 1 or 2 3. How often do you have six or more drinks on one occasion?: Never Total Score: 3 Score Reviewed/Action Taken: No MARIA DEL CARMEN-7 AMB Questionnaire MARIA DEL CARMEN-7 Date MARIA DEL CARMEN - 7 assessed: 11/05/24 Feeling nervous, anxious, or on edge: 0 = Not at all Not being able to stop or control worryin = Not at all Worrying too much about different things: 0 = Not at all Trouble relaxin = Not at all Being so restless that it is hard to sit still: 0 = Not at all Becoming easily annoyed or irritable: 0 = Not at all Feeling afraid as if something awful might happen: 0 = Not at all Total MARIA DEL CARMEN-7 score (0-4 normal; 5-9 mild; 10-14 moderate; 15-21 severe): 0 Source: Developed by Drs. Demetrio Berger, Layne Hernández, Iban Briceno and colleagues, with an educational wei from [employer]. MARIA DEL CARMEN-7 Assessment Billing MARIA DEL ACRMEN-7 Assessment Tool: MARIA DEL CARMEN-7 Assessment 77027 Review of Systems Const Details: - Cardiovascular: Denies chest pain, palpitations, or dyspnea on exertion. - Gastrointestinal: Denies abdominal pain, reports normal bowel movements. - Musculoskeletal: Reports numbness in the leg associated with hernia, denies current pain. Physical exam (Primary Care) Vital Signs: Last Vital Signs Temp 98.6 F 12/22/24 09:02 Pulse 61 12/22/24 09:02 Resp 16 12/22/24 09:02 BP 98/66 12/22/24 09:02 Pulse Ox 98 12/22/24 09:02 Oxygen Delivery Method Room Air 12/22/24 09:02 Care Plan Goal for BP management: <140/90 at Goal BMI result Body Mass Index 19.4 Normal BMI Tobacco/Smoking Status: Tobacco use Status Tobacco use date assessed 11/05/24 12/22/24 09:05 Patient Tobacco Use Status Never used Tobacco 12/22/24 09:05 Tobacco use type Cigarette 12/22/24 09:05 e-Cigarette/Vaping Use Never Used 12/22/24 09:05 PHQ-9: PHQ-9 Score PHQ-9: Total score 0 12/22/24 09:05 Depression Screening Interpretation: Negative Thrive Assessment: Date of Thrive Assessment Date Thrive assessed 11/05/24 12/22/24 09:05 Currently or been in a relationship where the following occur: No concerns reported Const Other: Appearance: Alert. Oriented X3. No acute distress. Head: Normal external exam. Normocephalic. Atraumatic. Eyes: Pupils are equal, round, and reactive to light. Extraocular movements intact. Conjunctiva and sclera normal. Eyelids normal. Ears: External auditory canal normal. Tympanic membranes normal. Throat: Pharynx normal. Uvula midline. Moist mucous membranes. Neck: Normal inspection. Neck supple. Full range of motion. No meningeal signs. No neck mass noted. Cardiovascular: Normal heart rate and rhythm. Heart sound normal. No murmurs noted. Pulses normal throughout. Respiratory: No respiratory distress. Painless inspiration. Breath sounds normal. No wheezes/rales/rhonchi noted. Chest nontender. No accessory muscle usage noted or decreased air movement noted. Abdomen: Soft and nontender. Bowel sounds normal in all 4 quadrants. No distention noted. Left inguinal hernia noted. Not incarcerated. No pain noted at this time. Back: No costovertebral angle tenderness. Full range of motion noted. Skin: Skin warm and dry. Normal skin color. Normal skin turgor. No rashes/lesions/lacerations noted. Extremities: No lower extremity edema. Extremities exhibit normal range of motion. Neuro: Oriented X 3. No motor deficit. No sensory deficit. Reflexes normal. Results Reviewed Results Reviewed: - Imaging: Pelvic ultrasound showed a small left inguinal hernia. - Labs: Total cholesterol 255 mg/dL, LDL 166 mg/dL, elevated liver enzymes noted. - Bone Density: Osteoporosis confirmed a year ago. Coding Level of Care Code Est Pt Level 4 (02105) Est Pt Prev Care 40-64y(27598) Diagnoses Annual physical exam Z00.00 Left inguinal hernia K40.90 Hyperlipidemia LDL goal <100 E78.5 Elevated AST (SGOT) R74.01 Elevated ALT measurement R74.01 Age-related osteoporosis without current pathological fracture M81.0 Osteoporosis type: age-related Presence of current pathological fracture: without current pathological fracture Additional Codes MARIA DEL CARMEN-7 Assessment Billing - MARIA DEL CARMEN-7 Assessment Tool: MARIA DEL CARMEN-7 Assessment 48656 ([id number]) PHQ-9 - 39705 - PHQ-9 Billing: Yes ([id number]) Assessment & Plan Assessment & Plan (1) Annual physical exam: Code(s): Z00.00 - Encounter for general adult medical examination without abnormal findings (2) Left inguinal hernia: Code(s): K40.90 - Unilateral inguinal hernia, without obstruction or gangrene, not s pecified as recurrent Category: Medical Plan: The patient will be referred to a surgeon for evaluation of the small left inguinal hernia, which is not currently painful but has caused numbness in the past. Surgical options, including laparoscopic repair with mesh, were discussed as potential interventions. (3) Hyperlipidemia LDL goal <100: Code(s): E78.5 - Hyperlipidemia, unspecified Category: Medical Plan: The patient has been advised to manage her cholesterol levels through dietary modifications, as she prefers to avoid statin therapy. Regular monitoring of cholesterol levels will be conducted to assess the effectiveness of lifestyle changes. (4) Elevated AST (SGOT): Code(s): R74.01 - Elevation of levels of liver transaminase levels Category: Medical Plan: The patient will continue to monitor liver enzyme levels, with consideration of dietary factors and genetic predisposition as potential causes. No immediate intervention is required as there are no symptoms of abdominal pain. (5) Elevated ALT measurement: Code(s): R74.01 - Elevation of levels of liver transaminase levels Category: Medical Plan: The patient will continue to monitor liver enzyme levels, with consideration of dietary factors and genetic predisposition as potential causes. No immediate intervention is required as there are no symptoms of abdominal pain. (6) Osteoporosis: Comment: Very high-risk for fracture Code(s): M81.0 - Age-related osteoporosis without current pathological fracture Category: Medical Qualifiers: Osteoporosis type: age-related Presence of current pathological fracture: without current pathological fracture Qualified Code(s): M81.0 - Age- related osteoporosis without current pathological fracture Plan: The patient is engaging in weight-bearing exercises and dietary changes to manage osteoporosis. Regular follow-up and monitoring of bone density are recommended to assess the effectiveness of these interventions. Plan Plan Patient was informed and verbally consented to the use of an ambient scribe for clinic note documentation during this visit. 1. Inguinal Hernia The patient will be referred to a surgeon for evaluation of the small left inguinal hernia, which is not currently painful but has caused numbness in the past. Surgical options, including laparoscopic repair with mesh, were discussed as potential interventions. 2. Hypercholesterolemia The patient has been advised to manage her cholesterol levels through dietary modifications, as she prefers to avoid statin therapy. Regular monitoring of cholesterol levels will be conducted to assess the effectiveness of lifestyle changes. 3. Elevated Liver Enzymes The patient will continue to monitor liver enzyme levels, with consideration of dietary factors and genetic predisposition as potential causes. No immediate intervention is required as there are no symptoms of abdominal pain. 4. Osteoporosis The patient is engaging in weight-bearing exercises and dietary changes to manage osteoporosis. Regular follow-up and monitoring of bone density are recommended to assess the effectiveness of these interventions. During the visit, we discussed the findings of the pelvic ultrasound, which showed a small left inguinal hernia. I explained the potential surgical options, including laparoscopic repair with mesh, and the patient expressed interest in consulting with a surgeon. We also reviewed her cholesterol levels, and I advised dietary modifications as she prefers to avoid statins. We discussed the importance of monitoring her liver enzymes and attributed the elevation to possible dietary factors or genetic predisposition. For osteoporosis, I recommended continuing weight-bearing exercises and dietary changes, with regular follow-up to monitor bone density. The patient declined further mammograms due to concerns about radiation exposure, and I documented her refusal. Orders: Referrals General Surgery Referral K40.90 - Unilateral inguinal hernia, without obstruction or gangrene, not specified as recurrent Patient Instructions: - Follow up with the surgeon for evaluation of the inguinal hernia. - Continue dietary modifications to manage cholesterol levels. - Monitor liver enzyme levels and report any new symptoms. - Engage in weight-bearing exercises to support bone health. - Schedule regular follow-ups to monitor health status.
--- OUTSIDE RECORDS SUMMARY | 2024-12-22 09:28 | XMS_ITS | Clinical Summary ---
Author Organization [facility] Address [address] [place] [id number] Phone Care Team Providers Care Hedis Analyst Name Role Phone Pcp, Unknown Primary Care [...] 06/16/2024 Overview (06/16/2024): DEXA 2023? Done at [place] Family History Medical History Relation Comments Osteoporosis [...] Most Recently Relevant to Health Maintenance Insurance [facility] [employer] [facility] [employer] DIRECT [place] [address] [place] [address] [employer]ARE DIRECT [employer] [place] [address] [place] [address] DIRECT Care Teams Hedis Analyst Relationship Specialty Start Date End Date Pcp, Unknown PCP - General 04/02/24 Additional Source Comments The information contained in this document represents components of the legal health record. It is not the complete legal health record.[facility]
== END 2024-12-22 09:38 | disposition home or self-care (01) ==
LOC: HO.HMCSH 09:02
PROVIDERS: PCP Internal Medicine; Visit Provider Physician Assistant Medical
DX: Z00.00 Encounter for general adult medical examination without abnormal findings (principal); K40.90 Unilateral inguinal hernia, without obstruction or gangrene, not specified as recurrent; E78.5 Hyperlipidemia, unspecified; R74.01 Elevation of levels of liver transaminase levels; M81.0 Age-related osteoporosis without current pathological fracture

== ENCOUNTER → 2024-12-22 09:02 | Outpatient (BNVA) | payer OTHER, SELFPAY | PROVIDERS: PCP Internal Medicine; Visit Provider Physician Assistant Medical | DX: E78.00 Pure hypercholesterolemia, unspecified (principal); M81.0 Age-related osteoporosis without current pathological fracture; K40.90 Unilateral inguinal hernia, without obstruction or gangrene, not specified as recurrent; E78.5 Hyperlipidemia, unspecified; R74.01 Elevation of levels of liver transaminase levels | CPT/HCPCS: 96127; 99212; 99396 ==

== ENCOUNTER 2025-02-02 09:35 | Outpatient (AMB) | payer OTHER, SELFPAY ==
--- NOTE | 2025-02-02 09:42 | A.OFFVIS_ITS ---
Vital Signs 02/02/25 09:48 Height 5 ft 2.99 in Weight 112 lb BMI 19.8 BP 126/66 Blood Pressure Location Rt brachial Position Sitting Pulse 58 Intake Visit Reasons: inguinal hernia Intake Note: Patient referred by pcp Jannet Zuniga for assessment of inguinal hernia. First noticed since September. Patient c/o: denies pain. Reports normal BM. Network Intelligence Analyst Required: No Accompanied by: Self / Same As Patient Allergies codeine (CODEINE) Allergy (Unknown, Verified 02/02/25 09:46) can't sleep erythromycin base (ERYTHROMYCIN BASE) Allergy (Unknown, Verified 02/02/25 09:46) Rash penicillin V Allergy (Unknown, Verified 02/02/25 09:46) Unknown Penicillins (PENICILLINS) Allergy (Unknown, Verified 02/02/25 09:46) Rash Medication List - Last Reconciled 02/02/25 by Javier Bhatia MD No Known Home Meds HPI HPI inguinal hernia: Details: [age] year old female referred for a left inguinal hernia. She has noticed this reducible mass on her left groin since September of 2024. She says that this seems to be bigger when she is standing up or she is doing some exertion. She denies significant pain She has no GI complaints. She is very active and does a lot of exercises including some lifting. 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 [facility] Medical History Mammogram declined Pap smear abnormality of cervix Left inguinal hernia Hyperlipidemia LDL goal <100 Mild hypercholesterolemia Elevated ALT measurement Elevated AST (SGOT) Pure hypercholesterolemia, unspecified Hyperlipidemia Inguinal hernia Fibroadenoma of right breast Vitamin D deficiency Cystitis Vertigo Establishing care with new doctor, encounter for No pertinent past medical history Surgical History H/O wisdom tooth extraction H/O myringotomy H/O breast biopsy Hx of colonoscopy (~10/14/22) Family History Mother Graves disease Osteoporosis Father T-cell lymphoma Social History Household Members: Spouse Housing: House Alcohol intake: current Alcohol intake frequency: a few times a week Alcohol type: wine Patient Tobacco Use Status: Never used Tobacco Tobacco use type: Cigarette e-Cigarette/Vaping Use: Never Used service: No Current occupational status: employed and retired 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 Cognitive needs: No Hearing needs: No Vision needs: Yes (rx glasses) Review of Systems Const Denies chills and Denies fever(s) Card Denies chest pain, Denies dyspnea and Denies dyspnea on exertion Resp Denies cough, Denies dyspnea and Denies dyspnea on exertion GI Denies hematochezia and Denies change in bowel habits Denies hematuria Musc Denies back pain and Denies limited range of motion Neuro Denies focal weakness and Denies convulsions Psych Denies depression and Denies mood swings Physical Exam Vital Signs: Last Vital Signs Pulse 58 02/02/25 09:48 BP 126/66 02/02/25 09:48 BMI result Body Mass Index 19.8 Const General: comfortable and no acute distress Orientation/consciousness: patient oriented x3 Neck Neck: Yes no lymphadenopathy Resp Auscultation: clear to auscultation bilaterally Cardio Rhythm: regular rhythm GI Other: Small reducible left inguinal hernia, obvious with Valsalva, nontender Palpation (GI): Soft to palpation, nontender and no guarding Neuro General: patient oriented x3 Assessment & Plan Assessment & Plan (1) Left inguinal hernia: Code(s): K40.90 - Unilateral inguinal hernia, without obstruction or gangrene, not specified as recurrent Category: Medical Plan: She has a reducible left inguinal hernia as described above. I had a long discussion with her about the option of proceeding with repair. I explained the technique of repair of the left inguinal hernia with mesh. I reviewed the risks including but not limited to bleeding, infections, injury to bowel, recurrence, postop pain, as well as the benefits and alternatives I also explained to her what to expect postoperatively She is very active and does a lot of physical activities so I told her that these are factors that will affect her decision making about whether to proceed or not. She says she will talk to her about this and will call me if she decides to proceed. Coding Level of Care Code New Pt Level 3 (74111) Diagnoses Left inguinal hernia K40.90
[2025-02-02 09:48] VITALS: BP 126/66; PULSE 58; BMI 19.8
--- OUTSIDE RECORDS SUMMARY | 2025-02-02 11:29 | XMS_ITS | Clinical Summary ---
Author Organization [facility] Address [address] [place] [id number] Phone Care Team Providers Care Intermediate Card Tender Name Role Phone Pcp, Unknown Primary Care [...] 06/16/2024 Overview (06/16/2024): DEXA 2023? Done at [place] Family History Medical History Relation Comments Osteoporosis [...] 2012 ZOSTER VACCINES (1 of 2) 2012 MAMMOGRAM 10/23/2024 10/23/2022, 02/24, 12/05/2015, Additional history exists INFLUENZA VACCINE (#1) 2024 , 05/05/2022, 02/28/2020, Additional history exists COVID-19 VACCINE (2024- season) 2025 03/07/2023, 05/05/2022, 03/06/2021, Additional history exists Adult Td,Tdap Booster 10/14/2032 [...] not for interpretation. us Unknown Unknown MD IMG OUTSIDE IMAGING W/OUT INT ERPRETATION Final Result from Last 3 Months or Most Recently Relevant to Health Maintenance [place] [address] [address] DIRECT [facility] [employer] DIRECT [employer] DIRECT [employer] DIRECT [facility] CONNECTORCARE DIRECT Care Teams Intermediate Card Tender Relationship Specialty Start Date End Date Pcp, Unknown PCP - General 04/02/24 Additional Source Comments The information contained in this document represents components of the legal health record. It is not the complete legal health record.[facility]
== END 2025-02-02 10:11 | disposition home or self-care (01) ==
LOC: HO.HGS 09:38
PROVIDERS: PCP Internal Medicine; Visit Provider Surgery
DX: K40.90 Unilateral inguinal hernia, without obstruction or gangrene, not specified as recurrent (principal)
CPT/HCPCS: 99203

== ENCOUNTER → 2025-02-02 09:35 | Outpatient (BNVA) | payer OTHER, SELFPAY | PROVIDERS: PCP Internal Medicine; Visit Provider Surgery | DX: K40.90 Unilateral inguinal hernia, without obstruction or gangrene, not specified as recurrent (principal) | CPT/HCPCS: 99202 ==

== ENCOUNTER 2025-04-19 06:59 | Day surgery (SDC) | payer OTHER, SELFPAY ==
--- OUTSIDE RECORDS SUMMARY | 2025-03-21 14:22 | XMS_ITS | Clinical Summary ---
Author Organization [facility] Address [address] [place] [phone] Phone Care Team Providers Care Laborer Golf [employer] Name Role Phone Pcp, Unknown Primary Care [...] 06/16/2024 Overview (06/16/2024): DEXA 2023? Done at [place] Family History Medical History Relation Comments Osteoporosis [...] Most Recently Relevant to Health Maintenance [place] [address] [place] [address] DIRECT [facility] [employer] DIRECT [employer] DIRECT [employer] DIRECT [facility] CONNECTORCARE DIRECT Care Teams Laborer [employer] Relationship Specialty Start Date End Date Pcp, Unknown PCP - General 04/02/24 Additional Source Comments The information contained in this document represents components of the legal health record. It is not the complete legal health record.[facility]
--- NOTE | 2025-04-14 14:46 | HO.ANESPROP2 ---
Documented by User: Susanna Katz NP 04/14/25 14:49 HPI - Anesthesia Eval Consult details Narrative: 65yo F for Left Repair Hernia Inguinal Reducible with mesh Elevated liver enzymes followed by PCP. Asymptomatic at 11/2024 office visit [facility] Active Problems Active Problems: All Active Problems Left inguinal hernia (Acute) Hyperlipidemia LDL goal <100 (Acute) Mild hypercholesterolemia (Acute) Elevated ALT measurement (Acute) Elevated AST (SGOT) (Acute) Pure hypercholesterolemia, unspecified (Acute) Hyperlipidemia (Acute) Inguinal hernia (Acute) Fibroadenoma of right breast (Acute) Vitamin D deficiency (Acute) Cystitis (Acute) Vertigo (Acute) Establishing care with new doctor, encounter for (Acute) Osteoporosis (Acute) Well woman exam (Acute) Past Medical History Medical History Mammogram declined Pap smear abnormality of cervix Left inguinal hernia Hyperlipidemia LDL goal <100 Mild hypercholesterolemia Elevated ALT measurement Elevated AST (SGOT) Pure hypercholesterolemia, unspecified Inguinal hernia Fibroadenoma of right breast Vitamin D deficiency Cystitis Vertigo Establishing care with new doctor, encounter for Family History Family History Mother Graves disease Osteoporosis Father T-cell lymphoma Family history of problems with anesthesia: No Surgical History Surgical History H/O wisdom tooth extraction H/O myringotomy H/O breast biopsy Hx of colonoscopy (~10/14/22) History of Problems with Anesthesia: No Social History Social History Household Members: Spouse Housing: House Alcohol intake: current Alcohol intake frequency: holidays/special occasions only Alcohol type: wine Patient Tobacco Use Status: Never used Tobacco Tobacco use type: Cigarette e-Cigarette/Vaping Use: Never Used Use of substances other than those prescribed or required for medical reasons: No Have you been hit, kicked, punched, or otherwise hurt by someone within the past year? 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 Cognitive needs: No Hearing needs: No Vision needs: Yes (rx glasses) Meds Allergies Allergy/AdvReac Type Severity Reaction Status Date / Time codeine (CODEINE) Allergy Intermediate can't sleep Verified 04/19/25 07:23 erythromycin base Allergy Intermediate Rash Verified 04/19/25 07:23 (ERYTHROMYCIN BASE) Penicillins (PENICILLINS) Allergy Intermediate Rash Verified 04/19/25 07:23 Exam Pertinent Lab Results Pertinent Lab Results: Laboratory Tests 12/14/24 12/14/24 08:30 08:31 WBC 4.9 Hgb 14.7 Hct 43.1 Plt Count 295 Sodium 142 Potassium 4.2 Chloride 110 H Carbon Dioxide 23 Anion Gap 13 BUN 18 H Creatinine 0.83 Calcium 9.0 D Magnesium 2.0 Total Bilirubin 0.7 Direct Bilirubin 0.2 AST 55 H ALT 68 H Alkaline Phosphatase 88 Total Protein 6.7 Albumin 4.1 Assessment and Plan Assessment Anesthesia Assessment: Chart Reviewed Final Anesthetic Review Family History of Problems with Anesthesia: No History of Problems with Anesthesia: No Documented by User: Jerry Vega MD 04/19/25 08:40 [facility] Past Medical History Medical History Mammogram declined Pap smear abnormality of cervix Left inguinal hernia Hyperlipidemia LDL goal <100 Mild hypercholesterolemia Elevated ALT measurement Elevated AST (SGOT) Pure hypercholesterolemia, unspecified Inguinal hernia Fibroadenoma of right breast Vitamin D deficiency Cystitis Vertigo Establishing care with new doctor, encounter for Family History Family History Mother Graves disease Osteoporosis Father T-cell lymphoma Surgical History Surgical History H/O wisdom tooth extraction H/O myringotomy H/O breast biopsy Hx of colonoscopy (~10/14/22) Social History Social History Household Members: Spouse Housing: House Alcohol intake: current Alcohol intake frequency: holidays/special occasions only Alcohol type: wine Patient Tobacco Use Status: Never used Tobacco Tobacco use type: Cigarette e-Cigarette/Vaping Use: Never Used Use of substances other than those prescribed or required for medical reasons: No Have you been hit, kicked, punched, or otherwise hurt by someone within the past year? 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 Cognitive needs: No Hearing needs: No Vision needs: Yes (rx glasses) Meds Allergies Allergy/AdvReac Type Severity Reaction Status Date / Time codeine (CODEINE) Allergy Intermediate can't sleep Verified 04/19/25 07:23 erythromycin base Allergy Intermediate Rash Verified 04/19/25 07:23 (ERYTHROMYCIN BASE) Penicillins (PENICILLINS) Allergy Intermediate Rash Verified 04/19/25 07:23 Exam Exam Date and Time: 04/19/25 Airway Mallampati Class: I TM Dist: >3cm Neck ROM: Full Heart: rrr Lungs: ctab vesicular Assessment and Plan Assessment Anesthesia Assessment: Anesthesia Plan Discussed Final Anesthetic Review NPO: Yes ASA Class: I Final Preanesthetic Review: No Changes in Pt Med Stat, Meds/Allgs Chart Reviewed, Consent Obtained/Reviewed and Anes Risks/Benef Reviewed Patient Risk: Low Procedure Risk: Low Anesthetic Plan Anesthetic Plan: GA Disposition: Standard PACU
[2025-04-15 11:55] VITALS: BMI 19.8
[2025-04-19 07:12] VITALS: BMI 19.6
[2025-04-19 07:20] VITALS: BP 115/65; PULSE 80; RESP 16; TEMP 36.6; O2SAT 96
[2025-04-19] MEDS: Lactated Ringers 1,000 ML 100 ML IVCONT (07:28)
--- NOTE | 2025-04-19 08:24 | MHC.SHP ---
Pre-Procedural Eval Section A - 24 Hr Update-Section A only Date of Service: 04/19/25 Section B - Complete if H&P > 30 days Chief Complaint: Unilateral inguinal hernia, without obstruction Details of Present Illness: Has a reducible left inguinal hernia Relevant Social History: None Present Medications: see Short Stay Collaborative assessment Medical History: Significant History (Osteoporosis, hyperlipidemia, vitamin-D deficiency) History of Previous Operations: No relevant previous surgery Allergies: Allergies Allergy/AdvReac Type Severity Reaction Status Date / Time codeine (CODEINE) Allergy Intermediate can't sleep Verified 04/19/25 07:23 erythromycin base Allergy Intermediate Rash Verified 04/19/25 07:23 (ERYTHROMYCIN BASE) Penicillins (PENICILLINS) Allergy Intermediate Rash Verified 04/19/25 07:23 Review of Systems Sugical H&P ROS: Negative: Constitution, Cardiovascular, Respiratory and Gastrointestinal Exam Surgical H&P Exam: Normal: Heart and Normal: Lungs and Significant Findings: Abdomen (Left inguinal hernia reducible) Plan Diagnosis/Plan: Unchanged I have reviewed the history and physical and performed a pertinent physical examination on my patient. No changes have occurred unless specified. Time Spent With Patient Time: Total time managing care of this patient today ____ minutes.
--- NOTE | 2025-04-19 09:29 | P.OP_ITS ---
Operative Note Operative Note Date of Service: 04/19/25 Narrative: Preop diagnosis: Left inguinal hernia, reducible Postop diagnosis: Left inguinal hernia, reducible, direct Procedure: Repair of left inguinal hernia with mesh Surgeon: Javier Bhatia MD campus administrative assistant: BRENDAN Cruz The patient is a 70 year old female reducible mass on the left groin consistent with a left inguinal hernia. She understood the technique of the planned procedure as well as the risks, benefits, and alternatives. She was brought to the operating room and placed supine under general anesthesia via endotracheal tube. The left groin was prepped and draped in the usual sterile fashion. A surgical time-out was done. The patient received cefazolin 2 g IV preoperatively I infiltrated the planned line of incision with lidocaine 1%. I made a short incision in the skin along an imaginary line from the anterior superior iliac spine to the pubic ramus with a blade 15. This carried down with electrocautery through the full-thickness of the skin and subcutaneous fat until the external oblique aponeurosis was visualized. I bluntly dissected the aponeurosis to visualize the external ring. I then an incision in the aponeurosis overlying the canal with a blade 15 and extended this inferomedially to connect with the external ring. The inguinal canal was therefore entered at this time. I bluntly dissected the underside of the aponeurosis to create space for the mesh I proceeded to identify the round ligament. This was carefully dissected. There was note of a hernia sac underneath this on the floor of the canal consistent with a direct hernia. I divided the round ligament he had ligated this with Polysorb 2-0 ties I fashioned out a flat Prolene mesh to reinforced the entire floor of the canal. The mesh was flattened on the of the canal and was secured to the pubic ramus inferomedially, the shelving edge of the inguinal meant laterally, and the internal oblique medially and superiorly with Prolene 2-0 sutures. We observed for hemostasis. We irrigated. Once hemostasis was confirmed, we then reapposed the external oblique aponeurosis with a running 2-0 stitch to re-create the external ring The subcutaneous layer was reapposed with Polysorb 3-0 simple interrupted sutures. Skin closure was achieved with Polysorb 4-0 subcuticular running stitch. The area was infiltrated with Marcaine 0.5% for postop analgesia. Dressings were applied. The procedure was completed. The patient tolerated the procedure well. There were no immediate complications. Initial and final counts of sponges and instruments were correct. Estimated blood loss was less than 25 cc. The patient was extubated without difficulty and transferred to the recovery room with stable vital signs.
[2025-04-19 09:33] VITALS: BP 96/41; PULSE 71; RESP 10; TEMP 36.2; O2SAT 96
[2025-04-19 09:35] VITALS: BP 95/40; PULSE 66; RESP 12; O2SAT 96
[2025-04-19 09:40] VITALS: BP 98/45; PULSE 75; RESP 12; O2SAT 96
[2025-04-19 09:45] VITALS: BP 98/50; PULSE 81; RESP 12; O2SAT 96
[2025-04-19 10:00] VITALS: BP 113/54; PULSE 79; RESP 12; TEMP 36.2; O2SAT 98
== END 2025-04-19 10:22 | disposition home or self-care (01) ==
PROVIDERS: PCP Internal Medicine; Visit Provider Surgery
PROC: (CPT 49505; principal; 2025-04-19 08:40)
DX: K40.90 Unilateral inguinal hernia, without obstruction or gangrene, not specified as recurrent (principal); N30.90 Cystitis, unspecified without hematuria; E78.00 Pure hypercholesterolemia, unspecified; E55.9 Vitamin D deficiency, unspecified; R74.01 Elevation of levels of liver transaminase levels; R42 Dizziness and giddiness; Z88.0 Allergy status to penicillin; Z88.1 Allergy status to other antibiotic agents; Z88.5 Allergy status to narcotic agent
CPT/HCPCS: 49505; C1781; J0131; J0690; J1100; J1885; J2003; J2371; J2704; J2795; J3010

== ENCOUNTER → 2025-04-19 06:59 | Outpatient (BNV) | payer OTHER, SELFPAY | PROVIDERS: PCP Internal Medicine; Visit Provider Surgery | DX: K40.90 Unilateral inguinal hernia, without obstruction or gangrene, not specified as recurrent (principal) | CPT/HCPCS: 49505 ==

== ENCOUNTER 2025-05-03 08:53 | Outpatient (AMB) | payer OTHER, SELFPAY ==
--- NOTE | 2025-05-03 08:54 | A.OFFVIS_ITS ---
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 States she had some difficulty with pain control with the 1st week but was well controlled with ibuprofen, other [id number] medications. Did not require narcotics. Has been comfortable ambulating around the house. Has questions about returning to activity. Denies bleeding, bruising at the incision site. She does describe a firm lump without heart incision but thinks this is scar tissue. Denies any drainage redness to the skin. Denies fevers or chills per denies issues with bowel movements, urination. [facility] Medical History Mammogram declined Pap smear abnormality of cervix Left inguinal hernia Hyperlipidemia LDL goal <100 Mild hypercholesterolemia Elevated ALT measurement Elevated AST (SGOT) Pure hypercholesterolemia, unspecified Inguinal hernia Fibroadenoma of right breast Vitamin D deficiency Cystitis Vertigo Establishing care with new doctor, encounter for Surgical History (Updated 05/04/25 @ 07:50 by Romeo Cruz PA-C) History of left inguinal hernia repair (~04/19/25) H/O wisdom tooth extraction H/O myringotomy H/O breast biopsy Hx of colonoscopy (~10/14/22) Family History Mother Graves disease Osteoporosis Father T-cell lymphoma Social History Household Members: Spouse Housing: House Alcohol intake: current Alcohol intake frequency: holidays/special occasions only Alcohol type: wine Comment: counts correct Patient Tobacco Use Status: Never used Tobacco Tobacco use type: Cigarette e-Cigarette/Vaping Use: Never Used service: No Current occupational status: employed and retired 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 Nontender. Incision site clean dry intact Inspection: No distended Palpation (GI): Soft to palpation and no guarding Neuro General: patient oriented x3 Assessment & Plan Assessment & Plan (1) History of left inguinal hernia repair: Onset Date: ~04/19/25 Comment: Repair of left inguinal hernia with mesh-Dr. Sriram MARROQUIN FACS Code(s): Z98.890 - Other specified postprocedural states; Z87.19 - Personal history of other diseases of the digestive system Category: Medical Plan 65-year-old female s/p left inguinal hernia repair with mesh with Dr. Bhatia on 04/19/2025 coming to the office for routine follow-up. She is doing well, had some difficulty with pain control over the 1st week but this was well controlled with [id number] nonnarcotic pain medications. Now she is feeling very good, tolerating ambulation around the house and is eager to resume activity. We discussed that she should continue with activity restrictions no heavy lifting greater than 15-20 lb for at least 2 more weeks. She is agreeable this plan. Otherwise has no concerns. Appetite and bowel function are at baseline. Denies issues with urination She states that the incision site is healing well, and denies bleeding or drainage. There is some firmness that she felt. Likely postsurgical inflammation and scarring, reassured this will improve with time, additionally she can use warm compresses 2-3 times per day with some gentle massage to help soften this scoring. Abdomen is soft and benign, incision sites appear to be healing well, no evidence of current infection. We will continue with activity restrictions for 2 more week. No heavy lifting greater than 15-20 lb. she will follow up in 2 weeks, can return sooner as needed. Coding Level of Care Code Global (56510) Diagnoses History of left inguinal hernia repair Z98.890; Z87.19
[2025-05-03 08:56] VITALS: BP 112/77; PULSE 73; RESP 18; TEMP 36.6; O2SAT 97
== END 2025-05-03 09:14 | disposition home or self-care (01) ==
LOC: HO.HGS 08:53
PROVIDERS: PCP Internal Medicine
DX: Z98.890 Other specified postprocedural states (principal); Z87.19 Personal history of other diseases of the digestive system
CPT/HCPCS: 99024

== ENCOUNTER → 2025-05-03 08:53 | Outpatient (BNVA) | payer OTHER, SELFPAY | PROVIDERS: PCP Internal Medicine | DX: Z48.815 Encounter for surgical aftercare following surgery on the digestive system (principal); Z98.890 Other specified postprocedural states; Z87.19 Personal history of other diseases of the digestive system | CPT/HCPCS: 99212 ==

== ENCOUNTER 2025-05-16 09:45 | Outpatient (AMB) | payer OTHER, SELFPAY ==
[2025-05-16 10:11] VITALS: BP 113/62; PULSE 73
--- NOTE | 2025-05-16 10:11 | A.OFFVIS_ITS ---
Vital Signs 05/16/25 10:11 Weight 113 lb BP 113/62 Blood Pressure Location Rt brachial Position Sitting Pulse 73 Intake Visit Reasons: s/p LIH w/mesh Intake Note: Patient presents for a post-op assessment status post Repair of left inguinal hernia with mesh. Pt c/o: no concerns. Reports incision healing well. Steri strips fell off. Denies pain or discomfort. HARPREET: 05/03/2025 Romeo Cruz Human Relations Professor Required: No Accompanied by: Spouse Allergies codeine (CODEINE) Allergy (Intermediate, Verified 05/16/25 10:19) can't sleep erythromycin base (ERYTHROMYCIN BASE) Allergy (Intermediate, Verified 05/16/25 10:19) Rash Penicillins (PENICILLINS) Allergy (Intermediate, Verified 05/16/25 10:19) Rash HPI HPI s/p LIH w/mesh: Details: She is here for follow-up after left inguinal hernia repair with mesh last 04/19/2025. She continues to do well. She denies any significant complaints and feels well overall. [facility] Medical History Mammogram declined Pap smear abnormality of cervix Left inguinal hernia Hyperlipidemia LDL goal <100 Mild hypercholesterolemia Elevated ALT measurement Elevated AST (SGOT) Pure hypercholesterolemia, unspecified Inguinal hernia Fibroadenoma of right breast Vitamin D deficiency Cystitis Vertigo Establishing care with new doctor, encounter for Surgical History History of left inguinal hernia repair (~04/19/25) H/O wisdom tooth extraction H/O myringotomy H/O breast biopsy Hx of colonoscopy (~10/14/22) Family History Mother Graves disease Osteoporosis Father T-cell lymphoma Social History Household Members: Spouse Housing: House Alcohol intake: current Alcohol intake frequency: holidays/special occasions only Alcohol type: wine Comment: counts correct Patient Tobacco Use Status: Never used Tobacco Tobacco use type: Cigarette e-Cigarette/Vaping Use: Never Used service: No Current occupational status: employed and retired 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 Cognitive needs: No Hearing needs: No Vision needs: Yes (rx glasses) Review of Systems Const Denies chills and Denies fever(s) Card Denies chest pain GI Denies abdominal pain Physical Exam Vital Signs: Last Vital Signs Pulse 73 05/16/25 10:11 BP 113/62 05/16/25 10:11 Const General: comfortable and no acute distress GI Other: Incision well healed on the left groin, no signs of recurrence, Palpation (GI): Soft to palpation, not firm, nontender and no guarding Assessment & Plan Assessment & Plan (1) Left inguinal hernia: Code(s): K40.90 - Unilateral inguinal hernia, without obstruction or gangrene, not specified as recurrent Category: Medical Plan: Status post repair with mesh. She is doing very well. The repair site is intact. The incisions well healed. I advised her to avoid lifting anything more than 20 lb for about 2 more weeks. She can otherwise follow up on a p.r.n. basis. Coding Level of Care Code Global (71045) Diagnoses Left inguinal hernia K40.90
--- OUTSIDE RECORDS SUMMARY | 2025-05-16 11:19 | XMS_ITS | Clinical Summary ---
Author Organization [facility] Address [address] [place] [id number] Phone Care Team Providers Care Overhead Worker Name Role Phone Pcp, Unknown Primary Care [...] 06/16/2024 Overview (06/16/2024): DEXA 2023? Done at [place] Family History Medical History Relation Comments Osteoporosis [...] Most Recently Relevant to Health Maintenance [place] [address] [facility] [employer] DIRECT [employer] DIRECT [employer] DIRECT [facility] CONNE[employer]ARE DIRECT Care Teams Overhead Worker Relationship Specialty Start Date End Date Pcp, Unknown PCP - General 04/02/24 Additional Source Comments The information contained in this document represents components of the legal health record. It is not the complete legal health record.[facility]
== END 2025-05-16 10:45 | disposition home or self-care (01) ==
LOC: HO.HGS 09:46
PROVIDERS: PCP Internal Medicine; Visit Provider Surgery
DX: K40.90 Unilateral inguinal hernia, without obstruction or gangrene, not specified as recurrent (principal)
CPT/HCPCS: 99024

== ENCOUNTER → 2025-05-16 09:45 | Outpatient (BNVA) | payer OTHER, SELFPAY | PROVIDERS: PCP Internal Medicine; Visit Provider Surgery | DX: Z48.815 Encounter for surgical aftercare following surgery on the digestive system (principal); Z98.890 Other specified postprocedural states | CPT/HCPCS: 99212 ==